=== PATIENT | male | born 1945 | race Caucasian/White ===

== ENCOUNTER 2017-10-31 23:03 | Observation (INO) ==
[2017-11-01] MEDS ORDERED: Naloxone 0.4 MG/ML INJ IVP PRN (02:34)
[2017-11-01] MEDS ORDERED: Acetaminophen 325 MG TABLET PO PRN (02:34)
[2017-11-01] MEDS ORDERED: Nitroglycerin 0.4 MG TAB.SUBL SL PRN (02:38)
[2017-11-01] MEDS ORDERED: D5% in Water 1,000 ML IVC PRN (02:39)
[2017-11-01] MEDS ORDERED: *HR* Dextrose 50 % in Water (Syg) 50 ML SYRINGE IVP PRN (02:39)
[2017-11-01] MEDS ORDERED: Dextrose Gel 15 GM/37.5 ML TUBE PO PRN ×2 (02:39)
--- NOTE | 2017-11-01 02:50 | Internal Med History&Physical ---
Date of Encounter: 11/01/17 Time of Encounter: 02:00 Internal Medicine - H&P: HPI Chief complaint: Chest pain Admitted From: Home Plans for Post Hospital Care: Home History of present illness: Mr. Guerrero is a 72 year old male transferred from [facility] for chest pain. Past medical history is significant for diabetes, hypertension, polymyalgia rheumatica on low-dose prednisone, CHETAN on night BiPAP. Patient started to have chest pain since 2 days ago. The pain is intermittent, located on substernal area, no radiation, pressure-like pain, lasted about 10 minutes. Patient has 2 episode on Wednesday and about to 5 episodes on Wednesday. Patient denies nausea or diaphoresis during pain. Patient has mild shortness of breath. Patient denies fever or cough. In [facility], first of troponin negative, chest x-ray unremarkable. Patient was given nitroglycerin paste, which can relieve chest pain per patient. Patient was suspected CAD and transferred to our hospital to rule out ACS. Past Med Surg Social Fam HX - Past Medical History Medical history: arthritis, diabetes, hyperlipidemia, hypertension Psychiatric history: no psych history - Past Surgical History Surgical History: cataract, knee replacement Additional surgical history: septoplasty, somnoplasty, vitrectomy left eye, UVPP , TUIO, Right shoulder replacement, L4/5 spinal fusion, L3/4 spinal fusion - Social History Smoking Status: Never smoker Smokeless Tobacco Status: No Alcohol use: none Drug use: none - Family History Father History Unknown: Yes Mother History Unknown: Yes Internal Medicine - H&P: Meds Folic Acid 10/05/16 [History] Omeprazole 10/05/16 [History] Ascorbate Calcium [Vitamin C] 500 mg PO DAILY 11/01/17 [History] Cymbalta 65 mg PO HS 11/01/17 [History] Dorzolamide/Timolol/Pf [Cosopt Pf Eye Drops] 1 each OP DAILY 11/01/17 [History] Doxazosin [Cardura] 8 mg PO QAM 11/01/17 [History] Fenofibrate 200 mg PO QAM 11/01/17 [History] Folic Acid 1 mg PO DAILY 11/01/17 [History] Gabapentin [Neurontin] 200 mg PO TID 11/01/17 [History] Gluc/Dereje-MSM#1/C/Narinder/Eduardo/Bor [Osteo Bi-Flex Caplet] 1 each PO QAM AND QHS 01/11 [History] HumaLOG 11/01/17 [History] Ibuprofen [Motrin Ib] 200 mg PO PRN PRN 11/01/17 [History] Iron 65 mg PO DAILY 11/01/17 [History] Levothyroxine 200 mg PO QAM 11/01/17 [History] Loratadine [Allergy Relief] 10 mg PO HS 11/01/17 [History] Losartan 100 mg PO QAM 11/01/17 [History] Magnesium Oxide 500 mg PO QAM AND QHS 11/01/17 [History] Metoprolol 11/01/17 [History] Metoprolol Succinate 25 mg PO HS 11/01/17 [History] Mirabegron [Myrbetriq] 25 mg PO HS 11/01/17 [History] Montelukast 10 mg PO QAM 11/01/17 [History] Niacin (24 HR) 500 mg PO HS 11/01/17 [History] Sodium Chloride [Sodium Chloride Tab] 1 gm PO DAILY 11/01/17 [History] Testosterone Cypionate 100 mg IM 2XW 11/01/17 [History] Triamcinolone Acet [place] 11/01/17 [History] Triamcinolone Acet [place] [Kenalog [place]] 16.5 gm NS PRN PRN 11/01/17 [History] Vitamin D3 500 mg PO HS 11/01/17 [History] miSOPROStol [Cytotec] 200 mg PO QAM AND QHS 11/01/17 [History] predniSONE [PredniSONE] 5 mg PO DAILY 11/01/17 [History] 3 Allergy/AdvReac Type Severity Reaction Status Date / Time Penicillins Allergy Hives Verified 10/05/16 12:18 All Systems PM: A 10-system review of systems was performed and is negative for pertinent findings except as documented above in the HPI. - Constitutional Vitals: Temp Pulse Resp BP Pulse Ox 97.9 F 73 18 153/72 96 11/01/17 01:05 11/01/17 01:05 11/01/17 01:05 11/01/17 01:05 11/01/17 01:05 General appearance: Present: A&O X 3, no acute distress, answers questions appropriately - Head Head exam: Present: atraumatic, normocephalic - Eye Eye exam: Present: PERRL, conjuntiva pink, sclera anicteric Pupils: Present: PERRL - Neck Neck exam general surgery: Present: supple, trachea midline. Absent: lymphadenopathy - Respiratory Respiratory exam: Present: CTAB. Absent: accessory muscle use, rales, rhonchi, wheezes - Cardiovascular Cardiovascular exam: Present: RRR, +S1, +S2. Absent: diastolic murmur, gallop, rubs, systolic murmur - GI/Abdominal GI/Abdominal exam: Present: normal bowel sounds, soft, no peritoneal signs. Absent: distended, tenderness - Extremities Exam Extremities exam: Present: warm, radial pulses palpable and symmetrical. Absent : calf tenderness, cyanotic, pedal edema - Neurological Exam Neurological exam: Present: CN II-XII intact, oriented X3, no focal deficits. Absent: pronater drift, facial droop, speech deficit - Skin Skin exam: Present: dry, intact - Assessment and plan (1) Chest pain Current Visit: Yes Status: Acute Assessment and plan: Etiology is undetermined. Atypical pain. Intermittent. Seems respond to nitroglycerin. Need to rule out ACS. - Place patient on continuous cardiac monitoring - Track 3 sets of troponin - If troponin negative and the patient is pain-free, may consider stress test, either inpatient or outpatient. Qualifiers: Chest pain type: precordial pain Qualified Code(s): R07.2 - Precordial pain (2) Diabetes mellitus Current Visit: Yes Status: Acute Assessment and plan: Continue sliding scale insulin coverage Qualifiers: Diabetes mellitus type: type 2 Diabetes mellitus long-term insulin use: with middle or intermediate school principal use Diabetes mellitus complication status: with kidney complications Diabetes mellitus complication detail: with chronic kidney disease Chronic kidney disease stage: stage 3 (moderate) Qualified Code(s): E11.22 - Type 2 diabetes mellitus with diabetic chronic kidney disease; N18.3 - Chronic kidney disease, stage 3 (moderate); Z79.4 - retirement (current) use of insulin (3) Hypertension Current Visit: Yes Status: Acute Assessment and plan: Continue home medication after verification. Hydralazine IV when necessary at this point Qualifiers: Hypertension type: essential hypertension Qualified Code(s): I10 - Essential (primary) hypertension (4) Polymyalgia rheumatica Current Visit: Yes Status: Acute Assessment and plan: Continue low-dose prednisone 5 mg daily (5) Chronic steroid use Current Visit: Yes Status: Acute Assessment and plan: Need to consider stress steroid dose if patient developed major disease. Right now continue home dose. (6) CHETAN (obstructive sleep apnea) Current Visit: Yes Status: Acute Assessment and plan: Continue BiPAP during night (7) DVT prophylaxis Current Visit: Yes Status: Acute Assessment and plan: Heparin subcutaneously - Time Spent With Patient Total time spent is greater than 50% in coordination of care (as documented) at patient's floor/unit and/or counseling patient: 40 minutes Greater than 35 minutes
[2017-11-01 03:33] LABS: Basophils % 0.2 %; Eosinophils % 0.4 %; Hematocrit 35.1 % (37.5-50.1); Hemoglobin 11.8 g/dL (12.9-16.9); Immature Granulocytes % 1.3 % (0-4); Lymphocytes # 0.9 K/mcL (0.6-4.6); Lymphocytes % 16.7 %; Mean Corpuscular HGB Conc 33.6 g/dL (31.6-35.5); Mean Corpuscular Hemoglobin 31.7 pg (28.0-33.3); Mean Corpuscular Volume 94.4 fL (83.0-100.0); Mean Platelet Volume 9.2 fL (9.4-12.4); Monocytes # 0.5 K/mcL (0.0-1.3); Monocytes % 8.8 %; Neutrophils # 3.9 K/mcL (1.6-8.9); Platelet Count 159 K/mcL (140-400); Red Blood Count 3.72 M/mcL (4.19-5.50); Red Cell Distribution Width 13.6 % (11.5-14.5); Segmented Neutrophils % 72.6 %
[2017-11-01 03:50] LABS: BUN/Creatinine Ratio 27 (6-26); Blood Urea Nitrogen 37 mg/dL (8-23); Calcium 9.4 mg/dL (8.6-10.3); Carbon Dioxide 25 mEq/L (23-29); Chloride 103 mEq/L (98-107); Glucose 208 mg/dL (70-105); Magnesium 1.5 mg/dL (1.6-2.6); Osmolality,Calculated 293 (280-300); Potassium 4.2 mEq/L (3.5-5.1); Sodium 134 mEq/L (136-145); eGFR For African Americans > 60 (> 60); eGFR For Non-African Americans 51 (> 60)
[2017-11-01] MEDS ORDERED: *HR* OxyCODONE Immed Rel 5 MG TABLET PO PRN ×2 (05:22→08:24)
[2017-11-01] MEDS: Gabapentin 100 MG CAPSULE PO SCH ×4 (06:01→20:32)
[2017-11-01] MEDS: *HR* Heparin 5,000 UNIT/ML VIAL SQ SCH ×2 (06:02→16:10)
[2017-11-01] MEDS: Insulin LISPRO 300 UNITS/3 ML VIAL SQ SCH ×4 (08:19→20:37)
[2017-11-01] MEDS: Fenofibrate 54 MG TABLET PO SCH (08:20)
[2017-11-01] MEDS: Folic Acid 1 MG TABLET PO SCH (08:20)
[2017-11-01] MEDS: Ascorbic Acid 500 MG TABLET PO SCH (08:21)
[2017-11-01] MEDS: predniSONE 5 MG TABLET PO SCH (08:21)
[2017-11-01] MEDS: Dorzolamide/Timolol OPTH 10 ML BOTTLE BOTH EYES SCH (08:23)
[2017-11-01] MEDS ORDERED: Preparation H Ointment 30 GM TUBE RC PRN (17:30)
--- NOTE | 2017-11-01 18:49 | Event Note ---
Date of Encounter: 11/01/17 Time of Encounter: 18:47 Pt seen after MN. No acute changes. Stress test ordered today and pt was NPO for lunch but was fed. NPO after MN and stress test in am. Possible D/C 11/02/2017 once stress test is negative.
--- NOTE | 2017-11-01 19:09 | Electrocardiograph Report ---
[address] [place] [address] Test Date: 2017-11-01 Pat Name: Tor Guerrero Department: 112 Room: 2A Gender: M Slurry Mixer: : 1945 Requested By: Marisol Mijares Order Number: [id number] Reading MD: Sukhdeep Bowser Measurements Intervals [place] Rate: 68 P: 51 VT: 190 QRS: -12 QRSD: 98 T: 17 QT: 375 QTc: 392 Interpretive Statements SINUS RHYTHM MODERATE VOLTAGE CRITERIA FOR LVH Electronically Signed On 11-01-2017 19:07:35 EDT by Sukhdeep Bowser
[2017-11-01] MEDS: Cholecalciferol (D-3) 1,000 UNIT TABLET PO SCH (20:32)
[2017-11-01] MEDS ORDERED: *HR* OxyCODONE Immed Rel 5 MG TABLET PO SCH (21:00)
[2017-11-01] MEDS ORDERED: Metoprolol XL (24 HR) Succ 25 MG TAB.ER.24H PO SCH (21:00)
[2017-11-02] MEDS: *HR* Heparin 5,000 UNIT/ML VIAL SQ SCH ×2 (05:42→19:00)
[2017-11-02] MEDS ORDERED: *HR* OxyCODONE Immed Rel 5 MG TABLET PO PRN (06:19)
[2017-11-02] MEDS ORDERED: Regadenoson 0.4 MG/5 ML SYRINGE IVP ONE (06:31)
[2017-11-02] MEDS: Insulin LISPRO 300 UNITS/3 ML VIAL SQ SCH ×4 (08:34→20:00)
[2017-11-02] MEDS: Fenofibrate 54 MG TABLET PO SCH (09:40)
[2017-11-02] MEDS: Gabapentin 100 MG CAPSULE PO SCH ×3 (09:40→22:56)
[2017-11-02] MEDS: Folic Acid 1 MG TABLET PO SCH (09:40)
[2017-11-02] MEDS: Dorzolamide/Timolol OPTH 10 ML BOTTLE BOTH EYES SCH (09:41)
[2017-11-02] MEDS: predniSONE 5 MG TABLET PO SCH (09:41)
[2017-11-02] MEDS: Ascorbic Acid 500 MG TABLET PO SCH (09:41)
[2017-11-02] MEDS: *HR* OxyCODONE Immed Rel 5 MG TABLET PO PRN ×2 (13:07→23:02)
--- NOTE | 2017-11-02 13:27 | Internal Med Progress Note ---
Date of Encounter: 11/02/17 Time of Encounter: 13:27 - Assessment and plan (1) Chest pain Current Visit: Yes Status: Acute Assessment and plan: Patient underwent cardiac stress test earlier today. Does have abnormal findings with reversible ischemia in the apex. Consulted cardiology. Plan for left heart catheterization either today or tomorrow. High risk for complications. Qualifiers: Chest pain type: precordial pain Qualified Code(s): R07.2 - Precordial pain (2) Diabetes mellitus Current Visit: Yes Status: Chronic Assessment and plan: Well controlled at this time. Continue to monitor blood sugars. Continue current insulin regimen Qualifiers: Diabetes mellitus type: type 2 Diabetes mellitus fpc insulin use: with assistant terminal manager use Diabetes mellitus complication status: with kidney complications Diabetes mellitus complication detail: with chronic kidney disease Chronic kidney disease stage: stage 3 (moderate) Qualified Code(s): E11.22 - Type 2 diabetes mellitus with diabetic chronic kidney disease; N18.3 - Chronic kidney disease, stage 3 (moderate); Z79.4 - jail (current) use of insulin (3) Hypertension Current Visit: Yes Status: Chronic Assessment and plan: Blood pressure is intermittently elevated. Will increase metoprolol dosage Qualifiers: Hypertension type: essential hypertension Qualified Code(s): I10 - Essential (primary) hypertension (4) Polymyalgia rheumatica Current Visit: Yes Status: Chronic Assessment and plan: Continue home medications. On prednisone 5 mg by mouth daily. We will continue (5) Chronic steroid use Current Visit: Yes Status: Acute (6) CHETAN (obstructive sleep apnea) Current Visit: Yes Status: Chronic Assessment and plan: Use CPAP as needed (7) DVT prophylaxis Current Visit: Yes Status: Acute Assessment and plan: On subcutaneous heparin - Time Spent With Patient Total time spent is greater than 50% in coordination of care (as documented) at patient's floor/unit and/or counseling patient: - Subjective Interval history: Patient underwent cardiac stress test earlier this morning. Reported chest discomfort during the procedure. No chest pain currently. No fever or chills overnight. No nausea or vomiting. - Constitutional Vitals: Temp Pulse Resp BP Pulse Ox 98.0 F 60 16 154/81 94 11/02/17 10:47 11/02/17 10:47 11/02/17 10:47 11/02/17 10:47 11/02/17 10:47 General appearance: Present: A&O X 3, no acute distress, answers questions appropriately - Respiratory Respiratory exam: Present: CTAB. Absent: accessory muscle use, rales, rhonchi, wheezes - Cardiovascular Cardiovascular exam: Present: RRR, +S1, +S2. Absent: diastolic murmur, gallop, rubs, systolic murmur - GI/Abdominal GI/Abdominal exam: Present: normal bowel sounds, soft, no peritoneal signs. Absent: distended, tenderness - Extremities Exam Extremities exam: Present: warm, radial pulses palpable and symmetrical. Absent : calf tenderness, cyanotic, pedal edema - Neurological Exam Neurological exam: Present: alert, oriented X3, no focal deficits. Absent: facial droop, speech deficit Internal Medicine: Result - Labs CBC & Chem 7: 11/01/17 03:20 11/01/17 03:20 - Impressions Impressions Echocardiogram 11/01/17 04:57 Impressions: LVEF 65%. Normal LV chamber size, wall thickness and function. Mild left ventricular diastolic dysfunction. Normal right ventricular structure and function. No evidence of pulmonary hypertension. No significant valvular dysfunction. Left Ventricular Wall Motion: Rest Echo Findings All wall segments showed normal motion. Findings: Study Quality * Technically adequate exam. ECG Findings * Normal sinus rhythm. Left Ventricle * LVEF 65%. * Normal LV chamber size, wall thickness and function. * Mild left ventricular diastolic dysfunction. Right Ventricle * Normal right ventricular structure and function. Left Atrium * Normal left atrial size. Right Atrium * Normal right atrial size. Aortic Valve * Trileaflet aortic valve. * Mildly sclerotic aortic valve leaflets. * No aortic regurgitation. * No aortic stenosis. Mitral Valve * Normal mitral valve structure and function. * No mitral regurgitation. * No mitral stenosis. Tricuspid Valve * Normal tricuspid valve structure and function. * Trace tricuspid regurgitation. * No evidence of pulmonary hypertension. Pulmonic Valve * Normal pulmonic valve structure and function. * No pulmonic regurgitation. Aorta * Normally sized aortic root. Pericardium * The pericardium appears normal. IVC * Normal IVC dimensions and inspiratory collapse. Pulmonary Artery * Normal visualized portions of the main pulmonary artery. Consult Discharge Plan - Plan Referrals: Pankaj Perez MD [Primary Care Provider] -
--- NOTE | 2017-11-02 13:59 | Cardiology Consult Note ---
Date of Encounter: 11/02/17 Time of Encounter: 13:57 Assessment and Plan (1) Chest pain Current Visit: Yes Status: Acute Multiple cardiac risk factors and abnormal stress test with preserved ejection fraction as described above. Risks benefits and alternatives were discussed patient agrees to proceed with a left heart catheterization Qualifiers: Chest pain type: unspecified Qualified Code(s): R07.9 - Chest pain, unspecified Discussion w patient/family: The assessment and plan as outlined above was discussed with the patient and/or family members who expressed understanding and agreement. All questions were answered. Thank you for involving us in the care of your patient. Please call with any questions. History of Present Illness Consult date: 11/02/17 Consult reason: chest pain Chief complaint: chest pain History of present illness: Mr. Guerrero is a 72 year old male with multiple cardiac risk factors including diabetes presents for reason of chest pain. Patient was seen and evaluated by primary team found to have moderate reversible ischemia in the apical territories. Patient does have preserved ejection fraction however. He is currently respiratory denies any chest pain, shots breath, descensus, orthopnea , PND, presyncope or syncope Risks benefits and alternatives were discussed patient regards to her left heart catheterization patient agrees to proceed Past Med Surg Social Fam HX - Past Medical History Medical history: arthritis, diabetes, hyperlipidemia, hypertension Psychiatric history: no psych history - Past Surgical History Surgical History: cataract, knee replacement Additional surgical history: septoplasty, somnoplasty, vitrectomy left eye, UVPP , TUIO, Right shoulder replacement, L4/5 spinal fusion, L3/4 spinal fusion - Social History Smoking Status: Never smoker Smokeless Tobacco Status: No Alcohol use: none Drug use: none - Family History Father History Unknown: Yes Mother History Unknown: Yes Medications and Allergies Omeprazole [PriLOSEC] 40 mg PO DAILY 10/05/16 [History] Ascorbate Calcium [Vitamin C] 500 mg PO DAILY 11/01/17 [History] Cholecalciferol (Vitamin D3) [Vitamin D] 1,000 unit PO QPM 11/01/17 [History] Dorzolamide/Timolol/Pf [Cosopt Pf Eye Drops] 1 drop OP DAILY 11/01/17 [History] Doxazosin [Cardura] 8 mg PO QAM 11/01/17 [History] Duloxetine HCl [Cymbalta] 60 mg PO QPM 11/01/17 [History] Fenofibrate 200 mg PO QAM 11/01/17 [History] Ferrous Sulfate [Iron] 325 mg PO DAILY 11/01/17 [History] Folic Acid 1 mg PO DAILY 11/01/17 [History] Gabapentin [Neurontin] 200 mg PO TID 11/01/17 [History] Gluc/Dereje-MSM#1/C/Narinder/Eduardo/Bor [Osteo Bi-Flex Caplet] 1 each PO BID 11/01/17 [ History] Hydrocodone/Acetaminophen [Hydrocodon-Acetaminophn 10-325] 1 each PO QID PRN 01/11 [History] Ibuprofen [Motrin Ib] 200 mg PO PRN PRN 11/01/17 [History] Insulin LISPRO [HumaLOG] 3 - 16 units SQ TIDWM 11/01/17 [History] Ketotifen Fumarate [Zaditor] 51 drop BOTH EYES BID 11/01/17 [History] Levothyroxine Sodium [Levoxyl] 200 mcg PO QAM 11/01/17 [History] Lidocaine Patch [Lidoderm 5% patch] 1 patch TP DAILY 11/01/17 [History] Loratadine [Allergy Relief] 10 mg PO HS 11/01/17 [History] Losartan [Cozaar] 100 mg PO QAM 11/01/17 [History] Magnesium Oxide 500 mg PO BID 11/01/17 [History] Metoprolol Succinate 25 mg PO HS 11/01/17 [History] Metoprolol Succinate [Toprol Xl] 25 mg PO QPM 11/01/17 [History] Mirabegron [Myrbetriq] 25 mg PO QAM 11/01/17 [History] Montelukast [Singulair] 10 mg PO DAILY 11/01/17 [History] Niacin (24 HR) [Niaspan] 500 mg PO HS 11/01/17 [History] [place]-3S/Dha/Epa/Fish Oil [Fish Oil [place]-3 Softgel] 1,200 mg PO BID 11/01/17 [ History] Sodium Chloride [Sodium Chloride Tab] 1 gm PO DAILY 11/01/17 [History] Testosterone Cypionate 100 mg IM 2XW 11/01/17 [History] Triamcinolone Acet Wall [Kenalog Wall] 1 spray NS DAILY 11/01/17 [History] Zinc Acetate [Galzin] 25 mg PO QPM 11/01/17 [History] miSOPROStol [Cytotec] 200 mcg PO BID 11/01/17 [History] predniSONE [PredniSONE] 5 mg PO QAM 11/01/17 [History] 3 Allergy/AdvReac Type Severity Reaction Status Date / Time Penicillins Allergy Hives Verified 11/01/17 16:00 All Systems Review: The remainder of the systems were reviewed and are negative Physical Examination Vital Signs, Last 4 Hours Temp Pulse Resp BP Pulse Ox 11/02/17 10:47 98.0 F 60 16 154/81 94 General: Conversant, No Apparent Distress HEENT: Atraumatic, Normocephaly, Mucus Membranes Moist Neck: No JVD, Normal carotid pulses Cardiac: Reg Rate and Rhythm, Normal S1 and S2, No Murmur Lungs: Normal Breath Sounds, No Wheeze, Rales, Rhonchi Neuro: Alert and responsive, No focal deficits noted Abdomen: Soft, Non-Tender Skin: No rashes noted on visualized skin Musculoskeletal: No Chest Wall Tenderness Extremities: No Clubbing, No Cyanosis, No Edema, Normal Pulses Results 11/01/17 03:20 11/01/17 03:20 Consult Discharge Plan - Plan Referrals: Pankaj Perez MD [Primary Care Provider] -
[2017-11-02] MEDS: 0.9 % Sodium Chloride 1,000 ML IVC SCH (14:50)
[2017-11-02] MEDS ORDERED: Heparin 1,000 UNITS/500 mL 500 ML ONE (16:05)
[2017-11-02] MEDS ORDERED: Nitroglycerin 1,000 MCG/10 ML VIAL IV ONE (16:05)
[2017-11-02] MEDS ORDERED: *HR* Heparin 10,000 UNIT/10 ML VIAL ONE (16:05)
[2017-11-02] MEDS ORDERED: 0.9 % Sodium Chloride 1,000 ML ONE (16:05)
[2017-11-02] MEDS ORDERED: ISOVUE-370 200 ML INFUS..BTL IV ONE (16:05)
--- NOTE | 2017-11-02 18:04 | Pre-Sedation Evaluation ---
Pre-sedation evaluation - Pre-sedation checklist Date of procedure: 11/02/17 Procedure: Heart cath Recent Vitals: Last Vital Signs Temp 98.0 F 11/02/17 10:47 Pulse 60 11/02/17 10:47 Resp 16 11/02/17 10:47 BP 154/81 11/02/17 10:47 Pulse Ox 94 11/02/17 10:47 H&P (including ROS) documented in medical record: Yes Previous reaction to sedatives/anesthetics: Yes; explain in comment Dietary Status: Clear fluids after Midnight Airway Assessment: Patient can open mouth completely, TMJ function normal, Micrognathia (under-bite, receding chin) absent, Neck with adequate range of motion Dentition: No loose teeth or bridges Possible difficult airway: No ASA Classification *see protocol: CLASS II-Mild systemic disease Plan of Care: Pt appropriate candidate for procedure/moderate/conscious sedation , Risks/benefits of procedure/sedation discussed w/ patient/family Cardiac Registry (Cardio Only) - Functional Capacity Functional Capacity: >=4 METS with symptoms - Clincal Frailty Scale Clinical Frailty Scale: Managing Well
[2017-11-02] MEDS ORDERED: *HR* Midazolam HCl 2 MG/2 ML VIAL ONE ×2 (18:41→19:11)
[2017-11-02] MEDS ORDERED: *HR* FentaNYL (PF) 100 MCG/2 ML VIAL ONE (18:41)
[2017-11-02] MEDS ORDERED: *HR* Ticagrelor 90 MG TABLET ONE (19:24)
[2017-11-02] MEDS ORDERED: Nitroglycerin 25 MG/250 ML INFUS..BTL IVC ONE (19:28)
[2017-11-02] MEDS ORDERED: *HR* Bivalirudin 250 MG VIAL IVC ONE (19:42)
[2017-11-02] MEDS ORDERED: 0.9 % Sodium Chloride 1,000 ML IVC SCH (19:45)
--- NOTE | 2017-11-02 19:53 | Invasive Diagnostic Lab Proc ---
Name: Tor Guerrero Date of Study: 11/02/2017 Date: 1945 Ht: 68.1in Medical Record#: [id number] Age: 72 Wt: 194.01lb Gender: Male BSA: 2.02 Order #: [id number] BMI: 29.4 Physicians Procedure Physician: Liza Ross MD, [facility] Referring MD: Referring MD: Staff Name Position [facility] 06:32 PM LouisaLittle RT (R) Scrub 06:32 PM Eusebia Ramirez RN Forklift Picker 06:33 PM Indications Indication Abnormal Test - Stress Procedures Performed Procedure L HRT ARTERY/VENTRICLE ANGIO PRQ CARD SIOBHAN STENT W/ANGIO 1 VSL PRQ CARD SIOBHAN STENT W/ANGIO 1 VSL Pre-Procedure Checklist Informed consent is complete signed and on chart. H&P is on chart. ID band is on and ID verified with patient. Patient NPO for procedure The procedure was described for the patient and questions were answered. ECG is on chart. Plan of Care Patient will tolerate the procedure without complications. Adequate level of comfort will be maintained. Hemodynamics will remain stable Patient will recover from procedure without complications. Respiratory function will be maintained. Cardiac rhythm will remain stable. Patient temperature will be maintained. Patient and/or family have verbalized understanding of the procedure. Patient Education Chief Complaint/Reason for Test: Cardiac Cath Developmental Category: Geriatric (65+ years) Developmentally Appropriate for Age: Yes Learning Barriers: None Education Needs: Procedure Education Method: Verbal Information Taught: Cardiac Cath Educational Evaluation: Able to repeat information Intravenous Access Time IV Size Location DC'd Fluid/Drip Rate Units RN 20g 1 04/29" Patent On Arrival Rt Wrist 0.9NaCl ml/hr Allergies Penicillins PCN Vital Signs Time BP (mmHg) HR (bpm) O2 Sat. RR (bpm) LOC 06:33 PM / % 5 = Fully awake and oriented or at pre-proc level 06:36 PM / % 5 = Fully awake and oriented or at pre-proc level 06:49 PM / % 4 = Oriented but drowsy 06:49 PM / % 4 = Oriented but drowsy 07:04 PM / % 4 = Oriented but drowsy 06:35 PM 175 / 100 69 98 % 20 06:39 PM 183 / 94 55 97 % 18 06:44 PM 181 / 95 64 100 % 22 06:49 PM 162 / 90 68 100 % 29 06:54 PM 178 / 96 72 100 % 9 06:59 PM 169 / 102 76 96 % 10 07:04 PM 174 / 96 77 98 % 12 07:09 PM 189 / 108 78 100 % 17 07:14 PM 199 / 110 78 100 % 13 07:19 PM 162 / 104 75 100 % 13 07:24 PM 176 / 107 74 100 % 15 07:29 PM 169 / 105 81 100 % 11 Procedural Medications Time Medication Dose Units Method Given By 06:33 PM Oxygen 2 L/min nasal cannula Eusebia Ramirez RN 06:48 PM Lidocaine 2% 17 ml Subcutaneous Liza Ross MD, FACC 06:49 PM Versed 2 mg Intravenous Eusebia Ramirez RN 06:49 PM Fentanyl 50 mcg Intravenous Eusebia Ramirez RN 06:51 PM Benadryl 25 mg Intravenous Eusebia Ramirez RN 07:00 PM Angiomax 0.75mg/kg bolus: 13.5 ml Intravenous Eusebia Ramirez RN 07:03 PM Angiomax 1.75mg/kg/hr: 31.5 ml/hr Intravenous Eusebia Ramirez RN 07:11 PM Versed 1 mg Intravenous Eusebia Ramirez RN 07:11 PM Fentanyl 25 mcg Intravenous Eusebia Ramirez RN 07:14 PM Nitroglycerin 200 mcg Intracoronary Eusebia Ramirez RN 07:27 PM Nitroglycerin 200 mcg Intracoronary Liza Ross MD, FACC 07:30 PM Brilinta 180 mg Orally Eusebia Ramirez RN 07:32 PM Nitroglycerin 5 mcg/min Intravenous Eusebia Ramirez RN 07:34 PM Fentanyl 25 mcg Intravenous Eusebia Ramirez RN ASA Classification: CLASS II- Mild systemic disease (i.e. well-controlled diabetes, hypertension, asthma, cigarette smoking) Babak Score Preprocedure Postprocedure Activity 2- Moves 4 extremities sustained head lift Activity 2- Moves 4 extremities sustained head lift Circulation 2- SBP +/= 20 points of pre-anesthetic level Circulation 2- SBP +/= 20 points of pre-anesthetic level Consciousness 2- Awake and alert oriented x 3 Consciousness 2- Awake and alert oriented x 3 O2 Saturation 2- Able to maintain O2 satruation of 92% on room air O2 Saturation 2- Able to maintain O2 satruation of 92% on room air Respiratory 2- Able to deep breathe and cough well Respiratory 2- Able to deep breathe and cough well Total Score 10 Total Score 10 Contrast Agent: Isovue Diagnostic Contrast: 150 ml Total Contrast: 150 ml Fluoro Dose: 39501 mGy Procedure Log Time Note Enter By 06:24 PM CathStat 06:32 PM 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 06:33 PM Procedure start 18:33 :33 PM Time: 18:33 Oxygen on at 2 L/min per nasal cannula by Eusebia Ramirez RN [facility] :33 PM Time: 18:33 Patient comfortable and pain free: Yes :33 PM Time: 18:33LOC: 5 = Fully awake and oriented or at pre-proc level [facility] :33 PM Case Start 06:33 PM Vitals capture started with the following parameters, Patient=Adult, Interval=5 min, Initial Enquhgtn=612 mmHg, Deflation Rate=5 mmHg, Cuff placed on Right Arm 06:34 PM Recorded ECG: HR=58 Condition=Condition 1 06:34 PM Hair removed from procedure site in procedure lab using clippers. Bilateral groin prepped with Chloraprep by Eusebia Ramirez RN, then patient was draped. Skin intact. 06:35 PM HR=69 bpm, JVAJ=301/100 mmhg, SpO2=98.0 %, Resp=20 B/min 06:36 PM Time: 18:36 Patient comfortable and pain free: Yes [facility] 06:36 PM Time: 18:36LOC: 5 = Fully awake and oriented or at pre-proc level mm 06:39 PM HR=55 bpm, HZQH=813/94 mmhg, SpO2=97.0 %, Resp=18 B/min 06:44 PM HR=64 bpm, YQGJ=375/95 mmhg, DvY2=968.0 %, Resp=22 B/min 06:48 PM Time out performed according to hospital policy 06:48 PM Time: 18:48 17 ml Lidocaine 2% to right groin Subcutaneous Given by Liza Ross MD, [facility] 06:49 PM Access obtained by percutaneous puncture. 5Fr 10cm Terumo [place] sheath placed in right Femoral artery. [id number] [facility] 06:49 PM 0.035 145cm Navilyst 3mmJ wire [id number] [facility] 06:49 PM 5Fr FL 4 catheter inserted over the wire [facility] 06:49 PM Time: 18:49 Patient comfortable and pain free: Yes [facility] 06:49 PM Time: 18:49LOC: 4 = Oriented but drowsy [facility] 06:49 PM Time: 18:49 Versed 2 mg Intravenous Given by Eusebia Ramirez RN joaquinveronika 06:49 PM Time: 18:49 Fentanyl 50 mcg Intravenous Given by Eusebia Ramirez RN [facility] 06:49 PM HR=68 bpm, HMLV=935/90 mmhg, JxA2=727.0 %, Resp=29 B/min 06:49 PM wire removed [facility] 06:50 PM ASA Class CLASS II- Mild systemic disease (i.e. well-controlled diabetes, hypertension, asthma, cigarette smoking) [facility] 06:50 PM LCA angiography performed in multiple views. [facility] 06:50 PM Recorded Pressure: Ao, HR=69, Condition=Condition 1 (Aorta) Ao 121/65/91 06:51 PM Time: 18:51 Benadryl 25 mg Intravenous Given by [facility]eb[facility] 06:52 PM 0.035 260cm Navilyst 3mmJ wire [id number] [facility] 06:52 PM Catheter removed [facility] 06:52 PM 5Fr FR 4 catheter inserted over the wire [facility] 06:53 PM wire removed [facility] 06:53 PM Recorded Pressure: Ao, HR=74, Condition=Condition 1 (Aorta) Ao 148/94/120 06:54 PM RCA angiography performed in multiple views. [facility] 06:54 PM Catheter removed [facility] 06:54 PM 5Fr Pigtail catheter inserted over the wire [facility] 06:54 PM Catheter selectively placed in left ventricle [facility] 06:54 PM Bolus angiogram of left Ventricle complete: 8 ml/sec for a total of 24 mls [facility] 06:54 PM HR=72 bpm, KWGI=657/96 mmhg, MlH1=826.0 %, Resp=9 B/min 06:55 PM Pressure channel 1 zeroed. 06:55 PM Recorded Pressure: LV, HR=76, Condition=Condition 1 (Left Ventricle) LV 145/15/18 06:56 PM Catheter removed [facility] 06:56 PM Recorded Pressure: LV, Ao, HR=76, Condition=Condition 1 (Left Ventricle) LV 136/32/50, (Aorta) Ao 135/79/109 06:57 PM Inflation device was opened. [facility] 06:59 PM Sheath exchanged for a 6 Fr 11 cm Cordis Karen sheath [id number] [facility] 06:59 PM HR=76 bpm, CTRI=687/102 mmhg, SpO2=96.0 %, Resp=10 B/min 07:00 PM Time: 19:00 Angiomax 0.75mg/kg bolus: 13.5 ml Intravenous Given by Eusebia Ramirez RN 07:02 PM 6Fr EBU 3.5 Medtronic guide catheter was used to cannulate the PCI vessel successfully. reused? No hardy 07:03 PM Time: 19:03 Angiomax 1.75mg/kg/hr: 31.5 ml/hr Intravenous Given by Eusebia Ramirez RN [place] pump michelle 07:04 PM HR=77 bpm, TWPR=896/96 mmhg, SpO2=98.0 %, Resp=12 B/min 07:04 PM Time: 18:49LOC: 4 = Oriented but drowsy tshardy 07:04 PM Time: 18:49 Patient comfortable and pain free: Yes hardy 07:04 PM .014 Prowater 180cm guide wire across target lesion- successful. reused? No tsoummveronika 07:06 PM Coronary Dominance: right [facility] 07[facility]07 PM Recorded Pressure: Ao, HR=75, Condition=Condition 1 (Aorta) Ao 181/88/128 07:07 PM 2.0 mm x 12 mm Emerge Monorail balloon across target lesion- successful. reused? No tsjoaquinmmveronika 07:08 PM Balloon inflated @ 8 janette for 20 seconds [facility] 07:08 PM Lesion found in Mid LAD. Pre Stenosis: 99 Pre JULIET Flow: 3: Complete and Brisk Flow/Perfusion [facility] 07:09 PM HR=78 bpm, DVNA=098/108 mmhg, FfQ7=405.0 %, Resp=17 B/min 07:10 PM Balloon catheter removed intact. [facility] 07:11 PM 2.25mm x 16mm Synergy drug-eluting stent across target lesion- successful Lot [facility][id number] [facility] 07:11 PM Time: 19:11 Versed 1 mg Intravenous Given by Eusebia Ramirez RN hardy 07:11 PM Time: 19:11 Fentanyl 25 mcg Intravenous Given by Eusebia Ramirez RN 07:12 PM Stent deployed @ 12 janette for 30 seconds [facility] 07:12 PM Mid/Distal Left Anterior Descending Coronary Artery and diagonal branches with 99% stenosis. If graft is supplying this area, 0 % stenosis [facility] 07:14 PM Time: 19:14 Nitroglycerin 200 mcg Intracoronary Given by Eusebia Ramirez RN 07:14 PM HR=78 bpm, MTWH=501/110 mmhg, IfR3=392.0 %, Resp=13 B/min 07:14 PM Stent delivery system removed intact. tsjoaquinmmveronika 07:15 PM Guide wire removed intact. tsjoaquinmmveronika 07:15 PM Guide catheter removed intact. [facility] 07:18 PM 6Fr JR 4 Runway guide catheter was used to cannulate the PCI vessel successfully. reused? No tsoummers 07:18 PM .014 Prowater 180cm guide wire across target lesion- successful. reused? No tsoummers 07:18 PM Recorded Pressure: Ao, HR=77, Condition=Condition 1 (Aorta) Ao 153/84/114 07:18 PM 2.5 mm x 15 mm Emerge Monorail balloon across target lesion- successful. reused? No [facility] 07:19 PM HR=75 bpm, KMQM=335/104 mmhg, YaJ5=646.0 %, Resp=13 B/min, Comment=nsr 07:19 PM Time: 19:04LOC: 4 = Oriented but drowsy [facility] 07:19 PM Time: 19:04 Patient comfortable and pain free: Yes 07:21 PM Balloon inflated @ 8 janette for 23 seconds 07:23 PM Balloon catheter removed intact. 07:23 PM Lesion found in Mid RCA. Pre Stenosis: 80 Pre JULIET Flow: 3: Complete and Brisk Flow/Perfusion [facility] 07:23 PM Right Coronary, Right Posterior Descending Arteries with Right Posterolateral and Acute Marginal branches with 80 % stenosis. If graft is supplying this area, 0 % stenosis [facility] 07:24 PM HR=74 bpm, VMRA=635/107 mmhg, UoM0=451.0 %, Resp=15 B/min 07:25 PM 3.5mm x 24mm Synergy drug-eluting stent across target lesion- successful Lot #[id number] 07:25 PM Stent deployed @ 12 janette for 30 seconds [facility] 07:26 PM Stent balloon reinflated @ 16 janette for 15 seconds 07:27 PM Stent delivery system removed intact. mm 07:28 PM Time: 19:27 Nitroglycerin 200 mcg Intracoronary Given by Liza Ross MD, [facility] 07:28 PM Recorded Pressure: Ao, HR=81, Condition=Condition 1 (Aorta) Ao 195/94/136 07:28 PM Guide wire removed intact. tsmm 07:29 PM Guide catheter removed intact. [facility] 07:29 PM HR=81 bpm, FNHV=689/105 mmhg, BbY0=065.0 %, Resp=11 B/min 07:30 PM Bolus angiogram of right Femoral complete: 2 ml/sec for a total of 4 mls tsmmers 07:30 PM Procedure completed at 19:30 11/02/2017 [facility] 07:30 PM Did you address JULIET flow and Dominance? Yes tsoummers 07:30 PM Time: 19:30 Brilinta 180 mg Orally crushed Given by Eusebia Ramirez RN tshardy 07:33 PM Time: 19:32 Nitroglycerin 5 mcg/min Intravenous Given by Eusebia Ramirez RN tshardy 07:34 PM Time: 19:34 Fentanyl 25 mcg Intravenous Given by Eusebia Ramirez RN 07:40 PM Sign out completed: Radiation Dose 878.68 mGy, 51656 cGy/cm2 Fluoro Time: 11.2 Isovue 370 - 200ml contrast 150.4 ml given by Liza Ross MD, [facility]. Complications: NoneCardiac Rehab Consult needed: YesConfirmed administered medications: Yes tsoummers 07:40 PM Isovue 370 - 200ml,2 Bottle(s) used. tsoummers 07:40 PM Sheath left in place to be pulled on floor/holding area tsoummveronika 07:40 PM Estimated Blood Loss: less than 20cc tsoummveronika 07:40 PM Post ECG NSR tsoummers 07:40 PM Post Blood Pressure 150/93 tsoummers 07:40 PM Information taught Cardiac Cath and PCI tsoummveronika 07:41 PM Education needs Procedure, Plan of Care, and Responsibilities of Patient in Care tsoummers 07:41 PM Learning barriers :None tsoummers 07:41 PM Education Methods Verbal tsoumm 07:41 PM Education evaluation Able to repeat information tsoummveronika 07:41 PM Site status No bleeding/hematoma - Rt Groin as reported by Sites, Little RT (R) at 19:41 tsoummers 07:41 PM Opsite applied tsoummers 07:41 PM Plavix, Effient or Brilinta given Yes tsoummers 07:41 PM Delay to floor No tsoummers 07:41 PM Family placed in consult room. tsoummers 07:41 PM Complications: None tsoummers 07:41 PM Fluoro Time: 11.2 tsoummers 07:41 PM Isovue 370 - 200ml contrast 150.[address] Ross. tsoummveronika 07:41 PM Radiation Dose 878.68 mGy tsoummveronika 07:42 PM Lesion found in Proximal RCA. Pre Stenosis: 30 Pre JULIET Flow: tsoummers 07:42 PM Lesion found in Proximal LAD. Pre Stenosis: 25 Pre JULIET Flow: tsoummers 07:42 PM Lesion found in Proximal Circumflex. Pre Stenosis: 25 Pre JULIET Flow: [facility] 07:42 PM Circumflex, Obtuse Marginal, Left Posterior Descending, and Left Posterolateral Coronary Arteries with 25 % stenosis. If graft is supplying this area, 0 % stenosis [facility] 07:42 PM Proximal Left Anterior Descending Coronary Artery with 25% stenosis. If graft is supplying this territory, 0 % stenosis. [facility] 07[facility]46 PM Report given to Ximena MARINELLI Pt taken to ICU Room #02. 19:45 michelle 07:46 PM Patient out of room: 19:46 michelle Complications Complication None Hemodynamics Pressures Site Systolic/A Wave Diastolic/V Wave Mean AO 121 65 91 AO 148 94 120 LV 145 15 18 LV 136 32 50 AO 135 79 109 AO 181 88 128 AO 153 84 114 AO 195 94 136 Post Procedure Information Blood Pressure: 150/93 mmHg Rhythm: NSR Post procedural instructions were given Site Checks Time Location Status Staff Sheath In? Note 07:41 PM Rt Groin No bleeding/hematoma Sites, Littel RT (R) Pulses Time Site Pre-Procedure Post-Procedure Note Bilateral DP & PT 2+ Bilateral radial 2+ Updated by Cyndy Weaver RN on 11/02/2017 7:46:47 PM electronically signed on 11/02/2017 7:47:10 PM with status of Final
[2017-11-02] MEDS: amLODIPine 5 MG TABLET PO SCH (20:39)
[2017-11-02] MEDS ORDERED: Metoprolol XL (24 HR) Succ 25 MG TAB.ER.24H PO SCH (21:00)
[2017-11-02] MEDS: Cholecalciferol (D-3) 1,000 UNIT TABLET PO SCH (22:56)
[2017-11-03] MEDS ORDERED: *HR* Atropine Sulfate 1 MG/10 ML SYRINGE ONE (01:45)
[2017-11-03] MEDS: 0.9 % Sodium Chloride 1,000 ML IVC SCH (01:47)
[2017-11-03] MEDS: *HR* OxyCODONE Immed Rel 5 MG TABLET PO PRN ×2 (04:51→11:56)
[2017-11-03] MEDS: *HR* Heparin 5,000 UNIT/ML VIAL SQ SCH ×2 (04:51→18:13)
[2017-11-03 05:36] LABS: Hemoglobin 11.8 g/dL (12.9-16.9)
[2017-11-03 05:58] LABS: BUN/Creatinine Ratio 21 (6-26); Blood Urea Nitrogen 26 mg/dL (8-23); eGFR For African Americans > 60 (> 60); eGFR For Non-African Americans 58 (> 60)
[2017-11-03 06:00] LABS: Troponin I 0.14 ng/mL (< 0.04)
[2017-11-03] MEDS: Insulin LISPRO 300 UNITS/3 ML VIAL SQ SCH ×3 (08:15→16:21)
[2017-11-03] MEDS: amLODIPine 5 MG TABLET PO SCH (08:57)
[2017-11-03] MEDS: Ascorbic Acid 500 MG TABLET PO SCH (08:58)
[2017-11-03] MEDS: Folic Acid 1 MG TABLET PO SCH (08:58)
[2017-11-03] MEDS: Fenofibrate 54 MG TABLET PO SCH (08:59)
[2017-11-03] MEDS: predniSONE 5 MG TABLET PO SCH (08:59)
[2017-11-03] MEDS: Gabapentin 100 MG CAPSULE PO SCH ×2 (08:59→16:20)
[2017-11-03] MEDS: Dorzolamide/Timolol OPTH 10 ML BOTTLE BOTH EYES SCH (10:31)
[2017-11-03] MEDS ORDERED: Aspirin 81 MG TAB.CHEW PO SCH (11:30)
--- NOTE | 2017-11-03 11:51 | Cardiology Progress Note ---
Date of Encounter: 11/03/17 Time of Encounter: 11:46 Assessment and Plan (1) CAD (coronary artery disease) Current Visit: Yes Status: Acute S/P LHC yesterday for abnormal stress test. Double vessel coronary artery disease. The left ventricle is normal and has normal contractility EF 60%. Patient had successful PTCA/Drug-Eluting Stent placement in the mid LAD. Patient had successful PTCA/Drug-Eluting Stent placement in the mid RCA. Post LHC troponin 0.14. DAPT (ASA and Plavix) uninterrupted x 1 year. Pt verbalizes understanding. Continue BB, ARB. Start Statin. Right femoral access site no bleeding or hematoma. Moderate ecchymosis. H&H stable. Pt reports mild groin pain. Discussed with Dr. Marion. Recommend he ambulate. If no significant pain, no further testing needed. If groin pain worsens, then recommend US to r/o pseudo. TTE EF 65%, mild LVDD, no significant valvular dysfunction. Cardiology signing off. Reconsult PRN. Will coordinate outpt follow-up in 3-4 weeks. Qualifiers: Coronary Disease-Associated Artery/Lesion type: [place] artery [place] vs. transplanted heart: [place] heart Associated angina: angina presence unspecified Qualified Code(s): I25.10 - Atherosclerotic heart disease of [place] coronary artery without angina pectoris (2) Essential hypertension Current Visit: Yes Status: Chronic Uncontrolled BP at home and yesterday. Was on nitro gtt for BP control, since weaned off. BP stable this AM. Continue current antihypertensives and adjust as necessary. Discussion w patient/family: The assessment and plan as outlined above was discussed with the patient and/or family members who expressed understanding and agreement. All questions were answered. Thank you for involving us in the care of your patient. Please call with any questions. I will discuss all the above with Dr. Marion and make changes as necessary. Subjective Principal diagnosis: CAD, abnormal stress test Interval history: S/P LHC yesterday for abnormal stress test. Double vessel coronary artery disease. The left ventricle is normal and has normal contractility EF 60%. Patient had successful PTCA/Drug-Eluting Stent placement in the mid LAD. Patient had successful PTCA/Drug-Eluting Stent placement in the mid RCA. Reports mild groin pain that seems to be improved. Denies chest pain. Reports intermittent dyspnea overnight, none currently. Weaned off nitro gtt. BP stable. Objective Vital Signs, Last 4 Hours Temp Pulse 11/03/17 08:08 97.5 F L 11/03/17 07:47 64 Vital Signs Temp Pulse Pulse Resp BP Pulse Ox 11/03/17 08:08 97.5 F L 11/03/17 07:47 64 11/03/17 07:00 97.5 F L 68 16 121/62 95 11/03/17 06:00 74 74 14 141/98 100 11/03/17 05:00 72 72 14 128/71 100 11/03/17 04:55 97.9 F 11/03/17 04:00 70 67 12 160/87 100 11/03/17 03:15 78 63 16 134/86 100 11/03/17 02:45 68 65 12 136/74 100 11/03/17 02:30 59 59 14 123/69 100 11/03/17 02:15 73 73 16 124/76 100 11/03/17 02:05 67 67 16 127/86 100 11/03/17 02:00 68 67 14 137/77 100 11/03/17 01:55 65 65 18 137/77 100 11/03/17 01:50 56 60 16 143/84 100 11/03/17 01:48 62 11/03/17 01:38 67 11/03/17 01:30 59 16 132/77 100 11/03/17 00:15 97.6 F 55 18 133/78 99 11/03/17 00:00 61 11/02/17 23:00 53 55 16 131/70 99 11/02/17 22:15 67 64 14 123/80 100 11/02/17 21:57 56 11/02/17 21:45 69 12 115/79 98 11/02/17 20:30 71 11/02/17 20:00 62 16 179/92 97 11/02/17 19:58 98.1 F 54 14 181/95 99 11/02/17 19:52 56 Intake and Output 11/02/17 11/03/17 11/03/17 23:59 07:59 15:59 Intake Total 0 / 0 1000 / 1000 Output Total 850 / 850 660 / 660 400 / 400 Balance -850 / -850 340 / 340 -400 / -400 Intake: IV Fluids 1000 / 1000 0.9 % Sodium Chloride 1,000 ML 1000 / 1000 @ 100 mls/hr IVC .Q10H [facility] Rx#: [id number] Oral 0 / 0 0 / 0 Output: Urine 850 / 850 450 / 450 400 / 400 Catheter 210 / 210 Other: Weight 86 kg 86 kg Blood Glucose* 140 Patient Weight 11/03/17 23:59 Weight 86 kg General: Conversant, No Apparent Distress HEENT: Atraumatic, Normocephaly, Mucus Membranes Moist Neck: No JVD, Normal carotid pulses Cardiac: Reg Rate and Rhythm, Normal S1 and S2, No Murmur Lungs: Normal Breath Sounds, No Wheeze, Rales, Rhonchi Neuro: Alert and responsive, No focal deficits noted Abdomen: Soft, Non-Tender Skin: Other (right femoral access site no bleeding or hematoma. Moderate ecchymosis noted.) Musculoskeletal: No Chest Wall Tenderness Extremities: No Clubbing, No Cyanosis, No Edema, Normal Pulses Results 11/03/17 05:20 11/03/17 05:20 Lab Results 11/03/17 11/03/17 05:20 05:20 Hgb 11.8 L Hct 36.0 L Plt Count 160 BUN 26 H Creatinine 1.24 Troponin I 0.14 H* Short CBC 11/03/17 Range/Units 05:20 Hgb 11.8 L (12.9-16.9) g/dL Hct 36.0 L (37.5-50.1) % Plt Count 160 (140-400) K/mcL BMP 11/03/17 Range/Units 05:20 BUN 26 H (8-23) mg/dL Creatinine 1.24 (0.70-1.30) mg/dL Cardiac Enzymes 11/03/17 Range/Units 05:20 Troponin I 0.14 H* (< 0.04) ng/mL Active Medications Acetaminophen (Tylenol) 650 mg PO Q6HR PRN PRN Reason: Mild Pain/Fever Stop: 05/03/18 02:35 Amlodipine Besylate (Norvasc) 5 mg PO DAILY [facility] PRN Reason: Protocol Stop: 05/04/18 19:46 Last Admin: 11/03/17 08:57 Dose: 5 mg Ascorbic Acid (Vitamin C) 500 mg PO DAILY [facility] Stop: 05/03/18 09:01 Last Admin: 11/03/17 08:58 Dose: 500 mg Aspirin (Aspirin) 81 mg PO DAILY [facility] Stop: 05/05/18 11:31 Clopidogrel Bisulfate (Plavix) 75 mg PO DAILY [facility] Stop: 05/05/18 09:01 Last Admin: 11/03/17 08:57 Dose: 75 mg Dextrose/Water (Dextrose 50% (Syg)) 25 ml IVP AD PRN PRN Reason: Hypoglycemia Stop: 05/03/18 02:40 Dorzolamide/Timolol (Cosopt) 1 drop BOTH EYES DAILY [facility] Stop: 05/03/18 09:01 Last Admin: 11/03/17 10:31 Dose: Not Given Doxazosin Mesylate (Cardura) 8 mg PO QAM [facility] Stop: 05/03/18 09:01 Last Admin: 11/03/17 08:59 Dose: 8 mg Fenofibrate (Tricor) 216 mg PO QAM [facility] Stop: 05/03/18 09:01 Last Admin: 11/03/17 08:59 Dose: 216 mg Folic Acid (Folic Acid) 1 mg PO DAILY [facility] Stop: 05/03/18 09:01 Last Admin: 11/03/17 08:58 Dose: 1 mg Gabapentin (Neurontin) 200 mg PO TID [facility] Stop: 05/03/18 05:31 Last Admin: 11/03/17 08:59 Dose: 200 mg Glucagon (Glucagen) 1 mg IM ONCE PRN PRN Reason: Hypoglycemia Stop: 05/03/18 02:40 Glucose (Gluctose) 15 gm PO ONCE PRN PRN Reason: Hypoglycemia Stop: 05/03/18 02:40 Glucose (Gluctose) 30 gm PO ONCE PRN PRN Reason: Hypoglycemia Stop: 05/03/18 02:40 Heparin Sodium (Porcine) (Heparin) 5,000 unit SQ Q12HCO [facility] Stop: 05/03/18 06:01 Last Admin: 11/03/17 04:51 Dose: 5,000 unit Hydralazine HCl (Hydralazine) 10 mg IVP Q6HR PRN PRN Reason: Hypertension Stop: 05/03/18 03:10 Dextrose (Dextrose 5%) 1,000 mls @ 100 mls/hr IVC .Q10H PRN PRN Reason: HYPOGLYCEMIA Stop: 05/03/18 02:40 Sodium Chloride (0.9 % Sodium Chloride) 1,000 mls @ 100 mls/hr IVC .Q10H [facility] Stop: 05/04/18 13:31 Last Admin: 11/03/17 01:47 Dose: 100 mls/hr Insulin Human Lispro (Humalog) 0 units SQ [facility] PRN Reason: Protocol Stop: 05/03/18 21:01 Last Admin: 11/02/17 20:00 Dose: Not Given Insulin Human Lispro (Humalog) 0 units SQ TIDAC [facility] PRN Reason: Protocol Stop: 05/03/18 07:31 Last Admin: 11/03/17 08:15 Dose: Not Given Levothyroxine Sodium (Synthroid) 200 mcg PO DAILY@0630 [facility] Stop: 05/03/18 06:31 Last Admin: 11/03/17 04:51 Dose: 200 mcg Losartan Potassium (Cozaar) 100 mg PO [facility] PRN Reason: Protocol Stop: 05/03/18 09:01 Last Admin: 11/03/17 08:59 Dose: 100 mg Metoprolol Succinate (Toprol Xl) 50 mg PO [facility] Stop: 05/04/18 21:01 Last Admin: 11/02/17 20:38 Dose: 50 mg Montelukast Sodium (Singulair) 10 mg PO [facility] Stop: 05/03/18 09:01 Last Admin: 11/03/17 08:57 Dose: 10 mg Naloxone HCl (Narcan) 0.4 mg IVP Q2MIN PRN PRN Reason: SEE COMMENTS Stop: 05/03/18 02:35 Nitroglycerin (Nitroglycerin) 0.4 mg SL Q5MIN PRN PRN Reason: Chest Pain Stop: 05/03/18 02:39 Omeprazole (Prilosec) 20 mg PO [facility] Stop: 05/03/18 09:01 Last Admin: 11/03/17 08:58 Dose: 20 mg Oxycodone HCl (Roxicodone) 10 mg PO Q6HR PRN PRN Reason: Severe Pain Stop: 05/04/18 06:18 Last Admin: 11/03/17 04:51 Dose: 10 mg Phenyleph/Shark Oil/Min Oil/Petrol (Preparation H Ointment) 1 appl RC ONCE PRN PRN Reason: Hemorrhoids Stop: 05/03/18 17:31 Prednisone (Prednisone) 5 mg PO DAILY [facility] Stop: 05/03/18 09:01 Last Admin: 11/03/17 08:59 Dose: 5 mg Sodium Chloride (Sodium Chloride) 1 gm PO DAILY [facility] Stop: 05/03/18 09:01 Last Admin: 11/03/17 08:58 Dose: 1 gm Vitamin D (Vitamin D) 1,000 unit PO HS [facility] Stop: 05/03/18 21:01 Last Admin: 11/02/17 22:56 Dose: Not Given - Imaging and Cardiology Stress Test: report reviewed Echo: report reviewed Cardiac cath: report reviewed - EKG Interpretation EKG results cardiology: other (12 hr tele AVG HR 64, SR) Consult Discharge Plan - Plan Additional Instructions: RISK FACTORS: STOP SMOKING: If you smoke, STOP. Smoking or tobacco use significantly increases your risk of heart disease because nicotine causes the arteries to narrow or constrict. It also causes fats to stick to the artery. Your chances of having a heart attack are greatly increased if you continue to smoke. For more information, call the education line for smoking cessation 9-511-RKMQVDW EAT A LOW FAT/CHOLESTEROL/SODIUM DIET: This diet may help reduce your chances of having a heart attack. LIFTING: Avoid lifting anything more than 10 pounds for 5-7 days Prior to straining, laughing, sneezing and/or coughing, apply manual pressure directly over insertion site. ACTIVITY: You may walk or climb stairs as tolerated You can resume sexual activity as tolerated In general, you are encouraged to engage in a minimum of 30 minutes or more of moderate intensity physical activity, such as brisk walking, daily or at least 3 -4 times weekly BATHING Do not submerge the site into water (bath tub, hot tub, swimming pool) for 1 week. This can be a source for infection into the blood stream. You may shower after 24 hours SITE CARE: After 24 hours, you may remove the dressing and leave the site open to air. Keep the site clean and dry. Clean gently and pat dry. You can expect bruising and tenderness that gradually resolve within a week or two. Return to work as instructed per your physician Resume driving as instructed per physician Keep all scheduled follow up appointments Resume medications as instructed IMPORTANT: If prescribed a Platelet Aggregation Inhibitor such as, Plavix, Brilinta or Effient: Duration of therapy is minimum one year These medications are often used in combination with Aspirin in prevention of future heart attacks Never discontinue unless consult with your Pantry Goods Maker STROKE (CVA) Risk factors for a stroke are: Age, cigarette smoking, diabetes, excessive alcohol consumption, family history, high blood pressure, overweight, physical inactivity, prior stroke, heart attack, diagnosis of carotid artery stenosis or other artery disease. Warning signs: Sudden numbness or weakness of the face, arm or leg; especially on one side of the body, sudden confusion, trouble speaking or understanding, sudden trouble seeing in one or both eyes, sudden trouble walking, dizziness, loss of balance or coordination, sudden severe headache with no cause. Call 911 or go to the Emergency Room. CONGESTIVE HEART FAILURE: If you have been diagnosed with Congestive Heart Failure (CHF) and your symptoms return, make an appointment with your physician Weigh yourself daily. Notify your physician if you have a weight gain of two or more pounds in one day or five or more pounds in one week. If you experience any difficulty breathing, please call 911 BLEEDING: Although the risk of bleeding is minimal, it can happen. If you have any bleeding from the site, apply firm pressure above the puncture site for 10-15 minutes. If the bleeding does not stop, continue manual pressure and call 911 Contact your physician if: You develop a fever greater than 101 degrees Fahrenheit Your site becomes reddened or has any drainage You have an increase in pain or burning at the site or if a large knot forms at the site. If you experience chest pain, shortness of breath, dizziness, or extreme tiredness, stop the activity and rest. Please notify your physicians office if you experience any of these symptoms and they are not relieved by rest please call 911! Referrals: Pankaj Perez MD [Primary Care Provider] -
--- NOTE | 2017-11-03 16:07 | Discharge Summary ---
- NOTES TO OUTPATIENT PROVIDER Notes to Outpatient Provider: Patient hospitalized here for chest pain. Underwent stress test which was abnormal. Underwent left heart catheterization and placement of drug eluting stents to mid LAD and mid RCA. On dual antiplatelet therapy. Stable for discharge from a cardiology standpoint. He will follow up with enterprise sales executive after discharge for further management. Orders not resulted at time of discharge: Pending orders 11/01/17 09:33 NM vasquez perf SPECT multi [NM] Routine Date of Encounter: 11/03/17 Time of Encounter: 16:00 - Discharge Diagnosis (1) Chest pain Priority: Primary Status: Acute Qualifiers: Chest pain type: chest pain due to myocardial ischemia Ischemic chest pain type: other angina pectoris type Qualified Code(s): I20.8 - Other forms of angina pectoris (2) Diabetes mellitus Priority: Secondary Status: Chronic Qualifiers: Diabetes mellitus type: type 2 Diabetes mellitus correction insulin use: with plaster lather use Diabetes mellitus complication status: with kidney complications Diabetes mellitus complication detail: with chronic kidney disease Chronic kidney disease stage: stage 3 (moderate) Qualified Code(s): E11.22 - Type 2 diabetes mellitus with diabetic chronic kidney disease; N18.3 - Chronic kidney disease, stage 3 (moderate); 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 transplanted heart: [place] heart Associated angina: angina presence unspecified Qualified Code(s): I25.10 - Atherosclerotic heart disease of [place] coronary artery without angina pectoris Hospital course: Mr. Guerrero is a 72 year old male patient with a history of hypertension and hyperlipidemia, polymyalgia rheumatica, diabetes who was hospitalized here with chest pain. His troponins were trended and were negative. Underwent stress test which was abnormal. Underwent left heart catheterization and placement of drug eluting stents to mid LAD and mid RCA. On dual antiplatelet therapy. Stable for discharge from a cardiology standpoint. He will follow up with enterprise sales executive after discharge for further management. His blood pressure has been elevated and his metoprolol dosage has been increased. He was also placed on Norvasc but he does not wish to take that at this time until he discusses this further with his PCP. Discharge discussed with: patient, nurse, quality compliance consultant - Time Spent with Patient Total time spent providing and/or coordinating discharge services: Greater than 30 minutes (32 min) - Discharge Medications Prescriptions: amLODIPine [Norvasc] 5 mg PO DAILY #30 tablet Atorvastatin [Lipitor] 40 mg PO HS #30 tablet Clopidogrel [Plavix] 75 mg PO DAILY #30 tablet Metoprolol XL (24 HR) Succ [Toprol Xl] 50 mg PO HS #60 tab.er.24h Home Medications: Omeprazole [PriLOSEC] 40 mg PO DAILY 10/05/16 [History] Ascorbate Calcium [Vitamin C] 500 mg PO DAILY 11/01/17 [History] Cholecalciferol (Vitamin D3) [Vitamin D3] 1,000 unit PO QPM 11/01/17 [History] Dorzolamide/Timolol/Pf [Cosopt Pf Eye Drops] 1 drop OP DAILY 11/01/17 [History] Doxazosin [Cardura] 8 mg PO QAM 11/01/17 [History] Duloxetine HCl [Cymbalta] 60 mg PO QPM 11/01/17 [History] Fenofibrate 200 mg PO QAM 11/01/17 [History] Ferrous Sulfate [Iron] 325 mg PO DAILY 11/01/17 [History] Folic Acid 1 mg PO DAILY 11/01/17 [History] Gabapentin [Neurontin] 200 mg PO TID 11/01/17 [History] Gluc/Dereje-MSM#1/C/Narinder/Eduardo/Bor [Osteo Bi-Flex Caplet] 1 each PO BID 11/01/17 [ History] Insulin LISPRO [HumaLOG] 3 - 16 units SQ TIDWM 11/01/17 [History] Ketotifen Fumarate [Zaditor] 51 drop BOTH EYES BID 11/01/17 [History] Levothyroxine Sodium [Levoxyl] 200 mcg PO QAM 11/01/17 [History] Lidocaine Patch [Lidoderm 5% patch] 1 patch TP DAILY 11/01/17 [History] Loratadine [Allergy Relief] 10 mg PO HS 11/01/17 [History] Losartan [Cozaar] 100 mg PO QAM 11/01/17 [History] Magnesium Oxide 500 mg PO BID 11/01/17 [History] Mirabegron [Myrbetriq] 25 mg PO QAM 11/01/17 [History] Montelukast [Singulair] 10 mg PO DAILY 11/01/17 [History] Niacin (24 HR) [Niaspan] 500 mg PO HS 11/01/17 [History] Finley-3S/Dha/Epa/Fish Oil [Fish Oil Finley-3 Softgel] 1,200 mg PO BID 11/01/17 [ History] Sodium Chloride [Sodium Chloride Tab] 1 gm PO DAILY 11/01/17 [History] Testosterone Cypionate 100 mg IM 2XW 11/01/17 [History] Triamcinolone Acet [place] [Kenalog [place]] 1 spray NS DAILY 11/01/17 [History] Zinc Acetate [Galzin] 25 mg PO QPM 11/01/17 [History] miSOPROStol [Cytotec] 200 mcg PO BID 11/01/17 [History] predniSONE [PredniSONE] 5 mg PO QAM 11/01/17 [History] Atorvastatin [Lipitor] 40 mg PO HS #30 tablet 11/03/17 [Rx] Clopidogrel [Plavix] 75 mg PO DAILY #30 tablet 11/03/17 [Rx] Metoprolol XL (24 HR) Succ [Toprol Xl] 50 mg PO HS #60 tab.er.24h 11/03/17 [Rx] amLODIPine [Norvasc] 5 mg PO DAILY #30 tablet 11/03/17 [Rx] Allergies/Adverse Reactions: 3 Allergy/AdvReac Type Severity Reaction Status Date / Time Penicillins Allergy Hives Verified 11/01/17 16:00 Date of admission: 11/01/17 00:44 Primary care physician: Pankaj Perez MD Consults: 11/02/17 10:41 Consult to Cardiology [CONS] Routine Comment: Consulting Provider: Cardiology Chrissie Reason for Consult: Chest Pain; abnormal stress test Time Notified: 10:41 Call Completed: Yes 11/02/17 19:37 Consult to Cardiac Rehabilitation-Phase1 [CONS] Routine Comment: Reason for Consult: post op PCI Call Completed: Yes Discharging clinician: Angelica Escobar Anticipated date of discharge: 11/03/17 - Constitutional Vitals: Temp Pulse Resp BP Pulse Ox 98.1 F 73 18 140/83 97 11/03/17 11:58 11/03/17 12:10 11/03/17 12:10 11/03/17 12:10 11/03/17 12:10 General appearance: Present: A&O X 3, no acute distress, answers questions appropriately - Neck Neck exam general surgery: Present: supple, trachea midline. Absent: lymphadenopathy - Cardiovascular Cardiovascular exam: Present: RRR, +S1, +S2. Absent: diastolic murmur, gallop, rubs, systolic murmur - GI/Abdominal GI/Abdominal exam: Present: normal bowel sounds, soft, no peritoneal signs. Absent: distended, tenderness - Extremities Exam Extremities exam: Present: warm, radial pulses palpable and symmetrical. Absent : calf tenderness, cyanotic, pedal edema - Patient Status Disposition: Home, Self-Care Condition: Good Functional capacity at discharge: independent ambulation Overall status at discharge: patient is progressing back to baseline - Discharge Instructions Instructions: Chest Pain (DC), Left Heart Catheterization (DC), Right Heart Catheterization (DC), Chronic Hypertension (DC) Follow Up With: Pankaj Perez MD [Primary Care Provider] - (in 1-2 weeks) Ana Marion [Partnered Physician] - (in 1-2 weeks) Additional Instructions: RISK FACTORS: STOP SMOKING: If you smoke, STOP. Smoking or tobacco use significantly increases your risk of heart disease because nicotine causes the arteries to narrow or constrict. It also causes fats to stick to the artery. Your chances of having a heart attack are greatly increased if you continue to smoke. For more information, call the education line for smoking cessation 7-054-JIAUYAA EAT A LOW FAT/CHOLESTEROL/SODIUM DIET: This diet may help reduce your chances of having a heart attack. LIFTING: Avoid lifting anything more than 10 pounds for 5-7 days Prior to straining, laughing, sneezing and/or coughing, apply manual pressure directly over insertion site. ACTIVITY: You may walk or climb stairs as tolerated You can resume sexual activity as tolerated In general, you are encouraged to engage in a minimum of 30 minutes or more of moderate intensity physical activity, such as brisk walking, daily or at least 3 -4 times weekly BATHING Do not submerge the site into water (bath tub, hot tub, swimming pool) for 1 week. This can be a source for infection into the blood stream. You may shower after 24 hours SITE CARE: After 24 hours, you may remove the dressing and leave the site open to air. Keep the site clean and dry. Clean gently and pat dry. You can expect bruising and tenderness that gradually resolve within a week or two. Return to work as instructed per your physician Resume driving as instructed per physician Keep all scheduled follow up appointments Resume medications as instructed IMPORTANT: If prescribed a Platelet Aggregation Inhibitor such as, Plavix, Brilinta or Effient: Duration of therapy is minimum one year These medications are often used in combination with Aspirin in prevention of future heart attacks Never discontinue unless consult with your Laundry Route Driver STROKE (CVA) Risk factors for a stroke are: Age, cigarette smoking, diabetes, excessive alcohol consumption, family history, high blood pressure, overweight, physical inactivity, prior stroke, heart attack, diagnosis of carotid artery stenosis or other artery disease. Warning signs: Sudden numbness or weakness of the face, arm or leg; especially on one side of the body, sudden confusion, trouble speaking or understanding, sudden trouble seeing in one or both eyes, sudden trouble walking, dizziness, loss of balance or coordination, sudden severe headache with no cause. Call 911 or go to the Emergency Room. CONGESTIVE HEART FAILURE: If you have been diagnosed with Congestive Heart Failure (CHF) and your symptoms return, make an appointment with your physician Weigh yourself daily. Notify your physician if you have a weight gain of two or more pounds in one day or five or more pounds in one week. If you experience any difficulty breathing, please call 911 BLEEDING: Although the risk of bleeding is minimal, it can happen. If you have any bleeding from the site, apply firm pressure above the puncture site for 10-15 minutes. If the bleeding does not stop, continue manual pressure and call 911 Contact your physician if: You develop a fever greater than 101 degrees Fahrenheit Your site becomes reddened or has any drainage You have an increase in pain or burning at the site or if a large knot forms at the site. If you experience chest pain, shortness of breath, dizziness, or extreme tiredness, stop the activity and rest. Please notify your physicians office if you experience any of these symptoms and they are not relieved by rest please call 911! - Diet and Activity Activity: as per the cardiac rehab Diet: advance to your usual diet
[2017-11-03 18:11] VITALS: BP 124/80
--- NOTE | 2017-11-04 06:48 | Electrocardiograph Report ---
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
--- NOTE | 2017-11-04 06:56 | Electrocardiograph Report ---
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
== END 2017-11-03 18:20 | disposition home or self-care (01) ==
LOC: 2ANU → SUATTDRO 11-01 00:44 → ICNU 11-02 19:16
PROVIDERS: ADMIT Internal Medicine; ATTEND Internal Medicine

== ENCOUNTER 2018-02-07 04:02 | Observation (INO) ==
--- NOTE | 2018-02-07 07:40 | Internal Med History&Physical ---
Date of Encounter: 02/07/18 Time of Encounter: 07:33 Internal Medicine - H&P: HPI Chief complaint: fall Admitted From: Home Plans for Post Hospital Care: Home History of present illness: Mr. Guerrero is a 72 year old male with history of CAD status post stents in October 2017, hypertension, hyperlipidemia, orthostasis positive, CKD3 and polymyalgia rheumatica presented to the emergency department from [facility] with complaint of a fall. As per patient he woke up in the middle of the night to urinate however could not find his urine also he wet the bed. He called his and helped him stand up so she can change the sheets however he lost balance and fell and hit the back of his head. He denies palpitations, diaphoresis, vision changes, chest pain, shortness of breath or loss of consciousness prior or post episode. He can recall the incident. Denies bowel or bladder incontinence, denies tongue biting. He was taken to the [facility] and was found to have elevated troponin 0.097 so he was transferred to [facility] for further evaluation. while at [facility] imaging of the brain and neck was performed. reports at bedside reviewed. CT of the head was performed impression was no acute abnormalities. CT cervical spine W/O contrast performed at [facility]- impression- no acute abnormalities of the cervical spine. He denies fever, chills, headache, neck pain, nausea, vomiting, chest pain, palpitations, shortness of breath. denies loss of function in extremities, weakness, paresthesia He does report that he has had a recent shingles outbreak in the left flank and does complain of left knee pain however he denies decrease in range of motion, swelling, redness, warmth associated with the knee. Denies trauma to the knee. gary reports that he is compliant with medication but as per pharmacist he has not filled his statins. also he cannot recall if he is taking his ASA 81 mg daily. Past Med Surg Social Fam HX - Past Medical History Medical history: coronary artery disease, diabetes, GERD, hyperlipidemia, hypertension, myocardial infarction, other Psychiatric history: no psych history - Past Surgical History Surgical History: arthroscopy, cataract, knee replacement Additional surgical history: two fused discs - Social History Smoking Status: Never smoker Smokeless Tobacco Status: No Alcohol use: none Drug use: none Internal Medicine - H&P: Meds Ascorbate Calcium [Vitamin C] 500 mg PO DAILY 11/01/17 [History] Cholecalciferol (Vitamin D3) [Vitamin D3] 1,000 unit PO QPM 11/01/17 [History] Doxazosin [Cardura] 8 mg PO QAM 11/01/17 [History] Duloxetine HCl [Cymbalta] 60 mg PO QPM 11/01/17 [History] Fenofibrate 200 mg PO QAM 11/01/17 [History] Ferrous Sulfate [Iron] 325 mg PO Q48H 11/01/17 [History] Folic Acid 1 mg PO DAILY 11/01/17 [History] Gabapentin [Neurontin] 200 mg PO TID 11/01/17 [History] Insulin LISPRO [HumaLOG] 3 - 16 units SQ TIDWM 11/01/17 [History] Levothyroxine Sodium [Levoxyl] 200 mcg PO 0630 11/01/17 [History] Loratadine [Allergy Relief] 10 mg PO HS PRN 11/01/17 [History] Losartan [Cozaar] 100 mg PO QAM 11/01/17 [History] Magnesium Oxide 500 mg PO BID 11/01/17 [History] Montelukast [Singulair] 10 mg PO DAILY 11/01/17 [History] Niacin (24 HR) [Niaspan] 500 mg PO HS 11/01/17 [History] [place]-3S/Dha/Epa/Fish Oil [Fish Oil [place]-3 Softgel] 1,200 mg PO BID 11/01/17 [ History] Sodium Chloride [Sodium Chloride Tab] 1 gm PO DAILY 11/01/17 [History] Testosterone Cypionate 100 mg IM QWEEK 11/01/17 [History] Zinc Acetate [Galzin] 25 mg PO QPM 11/01/17 [History] predniSONE [PredniSONE] 5 mg PO QAM 11/01/17 [History] Clopidogrel [Plavix] 75 mg PO DAILY #30 tablet 11/03/17 [Rx] Metoprolol XL (24 HR) Succ [Toprol Xl] 50 mg PO HS #60 tab.er.24h 11/03/17 [Rx] Metformin HCl [Metformin HCl ER] 500 mg PO DAILY 11/05/17 [History] Misoprostol [Cytotec] 200 mcg PO BID 11/05/17 [History] OxyCODONE Immed Rel [Roxicodone 10 MG] 10 mg PO Q6H PRN 11/05/17 [History] Acyclovir [Zovirax] 800 mg PO 5XD 02/07/18 [History] Lidocaine [Aspercreme] 1 each TP DAILY PRN 02/07/18 [History] Timolol Maleate 0.5% [Timolol Maleate 0.5%] 1 drop OP DAILY 02/07/18 [History] 3 Allergy/AdvReac Type Severity Reaction Status Date / Time Penicillins Allergy Hives Verified 12/17/17 16:22 All Systems PM: review of systems was performed and is negative for pertinent findings except as documented above in the HPI. - Constitutional Vitals: Temp Pulse Resp BP Pulse Ox 98.2 F 81 16 142/73 98 02/07/18 06:11 02/07/18 06:11 02/07/18 06:11 02/07/18 06:11 02/07/18 06:11 Exam: General: Patient is alert, oriented, no acute distress, Head: atraumatic, normocephalic, Eye: normal appearance, PERRL, no scleral icterus, no conjunctival injection ENT: mucous membranes moist, normal external ear exam Neck: normal inspection, trachea midline, full ROM, no carotid bruits Chest: normal inspection, symmetric chest rise Respiratory: Good respiratory effort. Bilateral breath sounds are clear without wheezing, crackles, or rhonchi. Cardiovascular: Regular rate and rhythm. s1 and s2 No clicks, rubs, gallops, or murmors. Abdomen: Bowel sounds present normoactive x-4 quadrants. Abdomen is soft, nondistended. no Epigastric tenderness. No guarding or rebound. No organomegaly noted, obese musculoskeletal: Spontaneously moving all extremities. no edema, no calf tenderness , left knee has range of motion, no warmth or swelling appreciated Skin: warm, dry, intact. Left flank with right blisters in different stages of healing Neuro: Alert and oriented x4. Sensation light touch intact. Cranial nerves 2- 12 is intact. Not aphasic, gait is steady, rapid hand movements intact, finger- to-nose intact, Psych: Patient's affect is normal Internal Med - H&P Results - Labs CBC & Chem 7: 02/07/18 08:22 02/07/18 08:22 - EKG Data -: EKG Interpreted by Myself (NSR, non-specific St-t changes, prolonged QT 491) - Assessment and plan (1) Fall Current Visit: Yes Status: Acute Assessment and plan: Patient was brought in from [facility] status post fall where he hit the back of his head on the ground CT head and neck performed at [facility] did not show any acute abnormalities Does have history of orthostatic hypotension not wearing compression stockings Will get or orthostasis vitals Compression stockings Does have mildly elevated troponin in setting of CKDIII will rule out arrhythmia Telemetry monitoring EKG with prolonged QT- 491-avoid QT prolonging medications will follow serial EKGs along with troponin every 6 hours Cardiology consult Vitamin D level UA TTE 10/2017- Impressions: LVEF 65%. Normal LV chamber size, wall thickness and function. Mild left ventricular diastolic dysfunction. Normal right ventricular structure and function. No evidence of pulmonary hypertension. No significant valvular dysfunction. Qualifiers: Encounter type: initial encounter Qualified Code(s): W19.XXXA - Unspecified fall, initial encounter (2) Orthostatic hypotension Current Visit: No Status: Acute Assessment and plan: Will get orthostatic vitals Compression stockings Continue salt tablets Rest of the management as per above Was counseled on getting up from a laying position slowly (3) CAD (coronary artery disease) Current Visit: No Status: Acute Assessment and plan: Patient with status post SIOBHAN in October 2017 Troponin June was 0.12, troponin was sent at the [facility] 0.09 in setting of CKD Currently chest pain-free, EKG shows nonspecific ST-T changes Will follow serial troponin and EKG every 6 hours unsure if he is compliant to his DAPT ( medication list does not include ASA) Telemetry monitoring Cardiology consult if troponin or ekg changes consider starting him on heparin drip Will continue home medications if not contraindicated ((BB, ARB, DAPT, lipitor) Qualifiers: Coronary Disease-Associated Artery/Lesion type: [place] artery [place] vs. transplanted heart: [place] heart Associated angina: angina presence unspecified Qualified Code(s): I25.10 - Atherosclerotic heart disease of [place] coronary artery without angina pectoris (4) (HFpEF) heart failure with preserved ejection fraction Current Visit: Yes Status: Acute Assessment and plan: CXR stat BNP mildy elevated as [facility] at 14[facility] Currently not an acute distress Will continue home medications if not contraindicated TTE 10/2017- Impressions: LVEF 65%. Normal LV chamber size, wall thickness and function. Mild left ventricular diastolic dysfunction. Normal right ventricular structure and function. No evidence of pulmonary hypertension. No significant valvular dysfunction. (5) Chronic kidney disease, stage 3 Current Visit: No Status: Acute Assessment and plan: History of CKD3 Creatinine ranges from 1.2-1.3 We will follow renal functions closely Avoid nephrotoxic medications (6) Hypothyroidism Current Visit: Yes Status: Acute Assessment and plan: Continue home medications TSH in the morning Qualifiers: Hypothyroidism type: acquired Qualified Code(s): E03.9 - Hypothyroidism, unspecified (7) Diabetes mellitus Current Visit: No Status: Chronic Assessment and plan: Hold all oral hypoglycemic agents We will continue with insulin sliding scale Qualifiers: Diabetes mellitus type: type 2 Diabetes mellitus snf insulin use: with snf use Diabetes mellitus complication status: with kidney complications Diabetes mellitus complication detail: with chronic kidney disease Chronic kidney disease stage: stage 3 (moderate) Qualified Code(s): E11.22 - Type 2 diabetes mellitus with diabetic chronic kidney disease; N18.3 - Chronic kidney disease, stage 3 (moderate); 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
[2018-02-07] MEDS ORDERED: Naloxone 0.4 MG/ML INJ IVP PRN (08:04)
[2018-02-07 08:42] LABS: Basophils % 0.4 %; Eosinophils # 0.1 K/mcL (0.0-0.6); Eosinophils % 0.9 %; Hematocrit 37.7 % (37.5-50.1); Hemoglobin 13.2 g/dL (12.9-16.9); Immature Granulocytes % 0.5 % (0-4); Lymphocytes # 1.1 K/mcL (0.6-4.6); Lymphocytes % 19.6 %; Mean Corpuscular Volume 88.5 fL (83.0-100.0); Mean Platelet Volume 8.5 fL (9.4-12.4); Monocytes # 0.6 K/mcL (0.0-1.3); Neutrophils # 3.8 K/mcL (1.6-8.9); Platelet Count 149 K/mcL (140-400); Red Blood Count 4.26 M/mcL (4.19-5.50); Red Cell Distribution Width 12.9 % (11.5-14.5); Segmented Neutrophils % 67.6 %
[2018-02-07 08:48] LABS: INR 1.1; Prothrombin Time 12.5 Seconds (9.4-12.1)
[2018-02-07 08:51] LABS: Activated Partial Thrombo Time 29.4 Seconds (26.0-36.0)
[2018-02-07 09:02] LABS: Albumin 3.5 g/dL (3.5-5.7); Albumin/Globulin Ratio 1.5 (1.1-2.2); Bilirubin,Total 0.8 mg/dL (0.3-1.0); Calcium 9.1 mg/dL (8.6-10.3); Chol/HDL Ratio 6.4 (0-4.9); Globulin 2.4 g/dL (2.4-3.5); Magnesium 2.1 mg/dL (1.6-2.6); Phosphorous 2.2 mg/dL (2.7-4.5); Potassium 3.3 mEq/L (3.5-5.1); Total Protein 5.9 g/dL (6.4-8.9)
[2018-02-07] MEDS ORDERED: Loratadine 10 MG TABLET PO PRN (09:20)
[2018-02-07] MEDS ORDERED: Trolamine Salicylate/Aloe Vera 35.4 GM TUBE TP PRN (09:20)
[2018-02-07] MEDS ORDERED: *HR* Dextrose 50 % in Water (Syg) 50 ML SYRINGE IVP PRN (09:32)
[2018-02-07] MEDS ORDERED: D5% in Water 1,000 ML IVC PRN (09:32)
[2018-02-07] MEDS ORDERED: Dextrose Gel 15 GM/37.5 ML TUBE PO PRN ×2 (09:32)
[2018-02-07 09:45] LABS: Troponin I 0.1 ng/mL (< 0.04)
[2018-02-07] MEDS ORDERED: Heparin 25,000 UNIT/500 ML D5W 25,000 UNIT/500 ML BAG IVC SCH (10:30)
[2018-02-07] MEDS ORDERED: *HR* Heparin 5,000 UNIT/ML VIAL IVP ONE (10:47)
[2018-02-07] MEDS ORDERED: *HR* Heparin 5,000 UNIT/ML VIAL IVP PRN ×2 (10:47)
--- NOTE | 2018-02-07 11:13 | Cardiology Consult Note ---
<Jayda Zaman - Last Filed: 02/07/18 13:16> Date of Encounter: 02/07/18 Time of Encounter: 11:00 Assessment and Plan (1) Elevated troponin Current Visit: Yes Status: Acute Patient has history of CAD, stent placement in October 2017. Denies chest pain. Unlikely due to ACS. Possibly due to chronic kidney disease. EKG with sinus rhythm, prolonged QT and nonspecific ST changes. Avoid QT prolonging medications. Continue serial troponin and EKGs. Monitor on tele. If no increase in troponin, and patient remains asymptomatic, no evidence of arrhythmias, patient can followup as outpatient for further workup. (2) Fall Current Visit: Yes Status: Acute CT head and neck without acute abnormalities. History of orthostatic hypotension. Orthostatic vitals pending. Continue tele monitoring. Monitor for any bradyarrhythmias. Qualifiers: Encounter type: initial encounter Qualified Code(s): W19.XXXA - Unspecified fall, initial encounter (3) CAD (coronary artery disease) Current Visit: No Status: Acute Double vessel coronary artery disease. PTCA/drug eluting stents in mid LAD and mid RCA, October 2017. TTE 10/2017 with LVEF 65%, mild left ventricular diastolic dysfunction. Follows up with Dr. Ross. Continue aspirin, plavix, BB, ARB. Start Crestor and check LFTs in 2 weeks. Counseled on medication compliance. Qualifiers: Coronary Disease-Associated Artery/Lesion type: [place] artery [place] vs. transplanted heart: [place] heart Associated angina: angina presence unspecified Qualified Code(s): I25.10 - Atherosclerotic heart disease of [place] coronary artery without angina pectoris (4) Orthostatic hypotension Current Visit: No Status: Acute Orthostatic vital signs pending. Compression stockings. (5) Essential hypertension Current Visit: No Status: Chronic Continue home medications and monitor blood pressures. (6) Chronic kidney disease, stage 3 Current Visit: No Status: Acute Management per medicine service. (7) Diabetes mellitus Current Visit: No Status: Chronic Management per medicine service. 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 All questions were answered. Thank you for involving us in the care of your patient. Please call with any questions. History of Present Illness Consult date: 02/07/18 Requesting physician: Dolores Ann Consult reason: elevated troponin, h/o CAD s/p stents in 2018, prolonged QT, ? syncope Chief complaint: fall History of present illness: Mr. Guerrero is a 72 year old male with past medical history including CAD s/p two stent placements in October 2017 on plavix, hypertension, hyperlipidemia, orthoastasis positive, CKD stage 3, polymyalgia rhymatica who presents from [facility] with chief complaint of fall. Patient states he woke up in the middle of the night to use the restroom. His helped assist him out of bed. The patient states he did not have his cane near him. He states he turned, felt sudden back pain, lost his balance, fell backwards and hit his head on the floor. He believes he lost consciousness for about a minute after hitting his head. He denies lightheadedness, chest pain, shortness of breath, nausea, vision changes, weakness, fevers, palpitations. EMS was called and brought him to [facility]. CT of head and neck were negative for acute abnormalities. Troponin was 0.097 and patient was transferred to [place] for further evaluation and management. Troponin at [place] is 0.10. Cardiology consulted for elevated troponin. This morning, patient denies chest pain, diaphoresis, shortness of breath, nausea. Does complain of back pain, which is chronic for him. States he has shingles that was recently diagnosed on his left flank as well. Past Med Surg Social Fam HX - Past Medical History Medical history: coronary artery disease, diabetes, GERD, hyperlipidemia, hypertension, myocardial infarction, other Psychiatric history: no psych history - Past Surgical History Surgical History: arthroscopy, cataract, knee replacement Additional surgical history: two fused discs - Social History Smoking Status: Never smoker Smokeless Tobacco Status: No Alcohol use: none Drug use: none Medications and Allergies Ascorbate Calcium [Vitamin C] 500 mg PO DAILY 11/01/17 [History] Cholecalciferol (Vitamin D3) [Vitamin D3] 1,000 unit PO QPM 11/01/17 [History] Doxazosin [Cardura] 8 mg PO QAM 11/01/17 [History] Duloxetine HCl [Cymbalta] 60 mg PO QPM 11/01/17 [History] Fenofibrate 200 mg PO QAM 11/01/17 [History] Ferrous Sulfate [Iron] 325 mg PO Q48H 11/01/17 [History] Folic Acid 1 mg PO DAILY 11/01/17 [History] Gabapentin [Neurontin] 200 mg PO TID 11/01/17 [History] Insulin LISPRO [HumaLOG] 3 - 16 units SQ TIDWM 11/01/17 [History] Levothyroxine Sodium [Levoxyl] 200 mcg PO 0630 11/01/17 [History] Loratadine [Allergy Relief] 10 mg PO HS PRN 11/01/17 [History] Losartan [Cozaar] 100 mg PO QAM 11/01/17 [History] Magnesium Oxide 500 mg PO BID 11/01/17 [History] Montelukast [Singulair] 10 mg PO DAILY 11/01/17 [History] Niacin (24 HR) [Niaspan] 500 mg PO HS 11/01/17 [History] [place]-3S/Dha/Epa/Fish Oil [Fish Oil [place]-3 Softgel] 1,200 mg PO BID 11/01/17 [ History] Sodium Chloride [Sodium Chloride Tab] 1 gm PO DAILY 11/01/17 [History] Testosterone Cypionate 100 mg IM QWEEK 11/01/17 [History] Zinc Acetate [Galzin] 25 mg PO QPM 11/01/17 [History] predniSONE [PredniSONE] 5 mg PO QAM 11/01/17 [History] Clopidogrel [Plavix] 75 mg PO DAILY #30 tablet 11/03/17 [Rx] Metoprolol XL (24 HR) Succ [Toprol Xl] 50 mg PO HS #60 tab.er.24h 11/03/17 [Rx] Metformin HCl [Metformin HCl ER] 500 mg PO DAILY 11/05/17 [History] Misoprostol [Cytotec] 200 mcg PO BID 11/05/17 [History] OxyCODONE Immed Rel [Roxicodone 10 MG] 10 mg PO Q6H PRN 11/05/17 [History] Acyclovir [Zovirax] 800 mg PO 5XD 02/07/18 [History] Aspirin [[place] Aspirin EC] 81 mg PO QPM 02/07/18 [History] Atorvastatin [Lipitor] 20 mg PO HS 02/07/18 [History] Lidocaine [Aspercreme] 1 each TP DAILY PRN 02/07/18 [History] Nitroglycerin [Nitrostat] 1 tab SL Q5MIN PRN 02/07/18 [History] Timolol Maleate 0.5% [Timolol Maleate 0.5%] 1 drop OP DAILY 02/07/18 [History] 3 Allergy/AdvReac Type Severity Reaction Status Date / Time Penicillins Allergy Hives Verified 12/17/17 16:22 All Systems Review: The remainder of the systems were reviewed and are negative - Constitutional Constitutional: other (fall), no chills, no fever(s), no headache(s), no weakness - EENT Eyes: no blurred vision, no loss of vision Nose, mouth and throat: no dysphagia, no sore throat - Cardiovascular Cardiovascular: no chest pain at rest, no chest pain with exertion, no claudication, no diaphoresis, no dyspnea at rest, no dyspnea on exertion, no irregular heart rhythm, no leg edema, no lightheadedness, no palpitations - Respiratory Respiratory: no cough, no dyspnea - Gastrointestinal Gastrointestinal: no abdominal pain, no constipation, no nausea - Genitourinary Genitourinary: no dysuria - Musculoskeletal Musculoskeletal: back pain, no muscle weakness, no myalgias - Integumentary Integumentary: rash (shingles) - Neurological Neurological: no abnormal speech, no dizziness, no loss of vision, no numbness, no syncope, no tingling Physical Examination General: Conversant, No Apparent Distress HEENT: Atraumatic, Normocephaly Neck: No JVD, Normal carotid pulses Cardiac: Reg Rate and Rhythm, Normal S1 and S2, No Murmur Lungs: Normal Breath Sounds, No Wheeze, Rales, Rhonchi Neuro: Alert and responsive, No focal deficits noted Abdomen: Soft, Non-Tender Skin: Other (No pallor.) Musculoskeletal: No Chest Wall Tenderness Extremities: No Edema, Normal Pulses (radial pulses equal bilaterally.) Results 02/07/18 11:15 10/15/18 08:22 Lab Results 02/07/18 02/07/18 02/07/18 08:22 08:22 08:22 WBC 5.7 Hgb 13.2 Hct 37.7 Plt Count 149 INR 1.1 APTT 29.4 Sodium 131 L Potassium 3.3 L Chloride 100 Carbon Dioxide 23 BUN 23 Creatinine 1.50 H Glucose 123 H Calcium 9.1 Magnesium 2.1 Total Bilirubin 0.8 AST 16 ALT 9 Alkaline Phosphatase 44 Troponin I B-Natriuretic Peptide 02/07/18 02/07/18 08:22 08:22 WBC Hgb Hct Plt Count INR APTT Sodium Potassium Chloride Carbon Dioxide BUN Creatinine Glucose Calcium Magnesium Total Bilirubin AST ALT Alkaline Phosphatase Troponin I 0.10 H* B-Natriuretic Peptide 96 Consult Discharge Plan - Plan Referrals: Pankaj Perez MD [Primary Care Provider] - <TitusGwendolynwarren - Last Filed: 02/07/18 13:47> Date of Encounter: 02/07/18 - Attending Attestation Patient was seen and evaluated independently by me. Findings, assessment and plan were discussed at length with patient, questions answered. Agree with nurse practitioner's documentation. Addition as follows, 72 yoCM ho SIOBHAN to LAD and RCA [id number] for abn stress test, significnant chronic lower back pain, PMR, CKD 3, HTN, HLD. P/w a mechanical fall at the setting of severe back pain and leg weakness when turning. Dined dizziness before fall or LOC w neg CT head. ECG SR, STD inferior (no sig change c/w prior ECGs), trop 0.1 flat. Pt refusing lipitor due to concern for liver function. Back pain on interview, denied any CV symptoms. BP mildly elevated, no JVD, CTA, RRR, NT, no LE edema GFR 46, K 3.3, LFT wnl, TC/T/H/L 192/199/30/122 A: Mildly elevated troponin, type 2 NSTEMI likely 2/2 hypertension due to back pain HTN, severe back pain CAD, s/p SIOBHAN-LAD and RCA, no angina, not taking statin HLD, ho TG>1k, on tricor, niacin, fish oil, refusing lipitor CKD 3 PMR P: trend trop till down trending, d/c heparin c/w DAPT if cp/dypsnea or tele abn, repeat ECG if no event and neg tele ([facility]) overnight, no further cardiac w/u inpatient pt agrees a trial of crestor, switch lipitor to crestor 20 LFT in 4 wks Fanta Qureshi MD, PhD Assessment and Plan Discussion w patient/family: The assessment and plan as outlined above was discussed with the patient and/or family members who expressed understanding and agreement. All questions were answered. Thank you for involving us in the care of your patient. Please call with any questions. History of Present Illness History of present illness: Mr. Guerrero is a 72 year old male All Systems Review: The remainder of the systems were reviewed and are negative Physical Examination Vital Signs, Last 4 Hours Temp Pulse Resp BP Pulse Ox 02/07/18 12:04 98.2 F 80 15 165/74 98 02/07/18 11:58 91 Results 02/07/18 11:15 02/07/18 08:22 Lab Results 02/07/18 02/07/18 02/07/18 08:22 08:22 08:22 WBC 5.7 Hgb 13.2 Hct 37.7 Plt Count 149 INR 1.1 APTT 29.4 Sodium 131 L Potassium 3.3 L Chloride 100 Carbon Dioxide 23 BUN 23 Creatinine 1.50 H Glucose 123 H Calcium 9.1 Magnesium 2.1 Total Bilirubin 0.8 AST 16 ALT 9 Alkaline Phosphatase 44 Troponin I B-Natriuretic Peptide 02/07/18 02/07/18 02/07/18 08:22 08:22 11:15 WBC 5.3 Hgb 13.2 Hct 39.0 Plt Count 154 INR APTT Sodium Potassium Chloride Carbon Dioxide BUN Creatinine Glucose Calcium Magnesium Total Bilirubin AST ALT Alkaline Phosphatase Troponin I 0.10 H* B-Natriuretic Peptide 96 02/07/18 11:15 WBC Hgb Hct Plt Count INR 1.1 APTT Sodium Potassium Chloride Carbon Dioxide BUN Creatinine Glucose Calcium Magnesium Total Bilirubin AST ALT Alkaline Phosphatase Troponin I B-Natriuretic Peptide
[2018-02-07] MEDS: Folic Acid 1 MG TABLET PO SCH (11:25)
[2018-02-07] MEDS: *HR* OxyCODONE Immed Rel 5 MG TABLET PO PRN ×3 (11:25→23:48)
[2018-02-07] MEDS: Fenofibrate 54 MG TABLET PO SCH (11:25)
[2018-02-07] MEDS: Aspirin 81 MG TAB.CHEW PO SCH (11:25)
[2018-02-07] MEDS: Gabapentin 100 MG CAPSULE PO SCH ×3 (11:26→20:37)
[2018-02-07 11:33] LABS: Hemoglobin 13.2 g/dL (12.9-16.9); Mean Corpuscular HGB Conc 33.8 g/dL (31.6-35.5); Mean Corpuscular Hemoglobin 30.7 pg (28.0-33.3); Mean Corpuscular Volume 90.7 fL (83.0-100.0); Mean Platelet Volume 8.5 fL (9.4-12.4); Platelet Count 154 K/mcL (140-400); Red Cell Distribution Width 12.7 % (11.5-14.5)
[2018-02-07] MEDS: predniSONE 5 MG TABLET PO SCH (11:39)
[2018-02-07 12:19] LABS: Heparin anti-factor XA UFH 0.04 IU/mL (0.30-0.70); INR 1.1; Prothrombin Time 12.9 Seconds (9.4-12.1)
[2018-02-07] MEDS ORDERED: *HR* HYDROmorphone (PF) 1 MG/ML SYRINGE IVP ONE (13:14)
[2018-02-07] MEDS ORDERED: *HR* Heparin 5,000 UNIT/ML VIAL SQ SCH (14:00)
[2018-02-07] MEDS: Insulin LISPRO 300 UNITS/3 ML VIAL SQ SCH ×3 (14:55→20:38)
[2018-02-07] MEDS: Cholecalciferol (D-3) 1,000 UNIT TABLET PO SCH (17:32)
[2018-02-07] MEDS: (Zinc Acetate [Galzin] 25 MG) PO SCH (17:32)
[2018-02-07] MEDS: Magnesium Oxide 400 MG TABLET PO SCH (20:37)
[2018-02-07] MEDS: Metoprolol XL (24 HR) Succ 25 MG TAB.ER.24H PO SCH (20:37)
[2018-02-07] MEDS: miSOPROStol 100 MCG TABLET PO SCH (20:38)
[2018-02-07] MEDS: Niacin (24 HR) 500 MG TAB.ER.24H PO SCH (20:38)
[2018-02-08 01:54] LABS: Hemoglobin 12.4 g/dL (12.9-16.9); Mean Corpuscular HGB Conc 34.4 g/dL (31.6-35.5); Mean Corpuscular Hemoglobin 31.2 pg (28.0-33.3); Mean Corpuscular Volume 90.7 fL (83.0-100.0); Mean Platelet Volume 8.7 fL (9.4-12.4); Platelet Count 147 K/mcL (140-400); Red Blood Count 3.97 M/mcL (4.19-5.50); Red Cell Distribution Width 12.9 % (11.5-14.5)
[2018-02-08 02:15] LABS: Calcium 8.6 mg/dL (8.6-10.3); Potassium 3.8 mEq/L (3.5-5.1)
[2018-02-08 02:28] LABS: Thyroid Stimulating Hormone 2.622 mcIU/mL (0.340-5.600)
[2018-02-08 03:46] LABS: Estimated Average Glucose 120 mg/dl; Hemoglobin A1C 5.8 %
[2018-02-08] MEDS: *HR* OxyCODONE Immed Rel 5 MG TABLET PO PRN ×3 (06:06→20:04)
--- NOTE | 2018-02-08 08:03 | Internal Med Progress Note ---
Hospitalist Progress Note - Encounter Date of Encounter: 02/08/18 - Exam Vitals: Temp Pulse Resp BP Pulse Ox 98 F 60 15 122/68 94 02/08/18 04:00 02/08/18 04:00 02/08/18 04:00 02/08/18 04:00 02/08/18 04:00 - Assessment and Plan (1) Diabetes mellitus Current Visit: No Status: Chronic (2) DVT prophylaxis Current Visit: No Status: Acute (3) CAD (coronary artery disease) Current Visit: No Status: Acute (4) Orthostatic hypotension Current Visit: No Status: Acute (5) Chronic kidney disease, stage 3 Current Visit: No Status: Acute (6) Fall Current Visit: Yes Status: Acute (7) (HFpEF) heart failure with preserved ejection fraction Current Visit: Yes Status: Acute (8) Hypothyroidism Current Visit: Yes Status: Acute - Time Spent with Patient Total time spent is greater than 50% in coordination of care (as documented) at patient's floor/unit and/or counseling patient: Internal Medicine: Result - Labs CBC & Chem 7: 02/08/18 01:38 02/08/18 01:38 Labs: Short CBC 02/07/18 02/07/18 02/08/18 Range/Units 08:22 11:15 01:38 WBC 5.7 5.3 5.8 (4.3-11.1) K/mcL Hgb 13.2 13.2 12.4 L (12.9-16.9) g/dL Hct 37.7 39.0 36.0 L (37.5-50.1) % Plt Count 149 154 147 (140-400) K/mcL Neutrophils # 3.8 (1.6-8.9) K/mcL BMP 02/07/18 02/08/18 08:22 01:38 Sodium 131 L 133 L Potassium 3.3 L 3.8 Chloride 100 103 Carbon Dioxide 23 23 BUN 23 26 H Creatinine 1.50 H 1.52 H Glucose 123 H 121 H Calcium 9.1 8.6 Cardiac Enzymes 02/07/18 02/07/18 02/07/18 Range/Units 08:22 14:00 20:03 Troponin I 0.10 H* 0.12 H* 0.10 H* (< 0.04) ng/mL Liver Function 02/07/18 Range/Units 08:22 Total Bilirubin 0.8 (0.3-1.0) mg/dL AST 16 (13-39) Units/L ALT 9 (7-52) Units/L Alkaline Phosphatase 44 (34-104) Units/L Albumin 3.5 (3.5-5.7) g/dL - ABG Interpretation ABG results: PT/INR, D-dimer PT 12.9 Seconds (9.4-12.1) H 02/07/18 11:15 - Impressions Impressions Knee X-Ray 02/07/18 08:08 IMPRESSION: Stable left knee arthroplasty. Stable lucency surrounding the tibial component of the arthroplasty. D/ / 02/07/2018 10:10:51 Eliecer Tyler MD / [email or web address] Interpreting Provider: Eliecer Tyler MD Chest X-Ray 02/07/18 09:31 IMPRESSION: No focal consolidation. Elevation of the right hemidiaphragm. D/ / Chloe Keating MD / Chloe Keating MD Interpreting Provider: Chloe Keating MD Consult Discharge Plan - Plan Referrals: Pankaj Perez MD [Primary Care Provider] - (1) Diabetes mellitus Qualifiers: Diabetes mellitus type: type 2 Diabetes mellitus licensed psychiatric technician insulin use: with care home use Diabetes mellitus complication status: with kidney complications Diabetes mellitus complication detail: with chronic kidney disease Chronic kidney disease stage: stage 3 (moderate) Qualified Code(s): E11.22 - Type 2 diabetes mellitus with diabetic chronic kidney disease; N18.3 - Chronic kidney disease, stage 3 (moderate); 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 transplanted heart: [place] heart Associated angina: angina presence unspecified Qualified Code(s): I25.10 - Atherosclerotic heart disease of [place] coronary artery without angina pectoris (6) Fall Qualifiers: Encounter type: initial encounter Qualified Code(s): W19.XXXA - Unspecified fall, initial encounter (8) Hypothyroidism Qualifiers: Hypothyroidism type: acquired Qualified Code(s): E03.9 - Hypothyroidism, unspecified
[2018-02-08] MEDS: Folic Acid 1 MG TABLET PO SCH (08:12)
[2018-02-08] MEDS: predniSONE 5 MG TABLET PO SCH (08:12)
[2018-02-08] MEDS: Fenofibrate 54 MG TABLET PO SCH (08:12)
[2018-02-08] MEDS: miSOPROStol 100 MCG TABLET PO SCH ×2 (08:13→20:03)
[2018-02-08] MEDS: Magnesium Oxide 400 MG TABLET PO SCH ×2 (08:13→20:03)
[2018-02-08] MEDS: Gabapentin 100 MG CAPSULE PO SCH ×3 (08:13→20:03)
[2018-02-08] MEDS: Aspirin 81 MG TAB.CHEW PO SCH (08:13)
[2018-02-08] MEDS: Ascorbic Acid 500 MG TABLET PO SCH (08:13)
[2018-02-08] MEDS: Insulin LISPRO 300 UNITS/3 ML VIAL SQ SCH ×4 (08:19→21:50)
--- NOTE | 2018-02-08 09:00 | Cardiology Progress Note ---
<Jayda Zaman - Last Filed: 02/08/18 10:36> Date of Encounter: 02/08/18 Time of Encounter: 08:15 Assessment and Plan (1) Elevated troponin Current Visit: Yes Status: Acute Patient has history of CAD, stent placement in October 2017. Troponin peaked at 0.12, now trending down. Asymptomatic, no chest pain. EKG with sinus rhythm, prolonged QT and nonspecific ST changes. Avoid QT prolonging medications. No events on tele overnight. No dysrhythmias or bradyarrhythmias. Elevated troponin possibly due to type 2 NSTEMI likely due to hypertension due to back pain. Plan to discontinue heparin and continue with dual antiplatelet therapy. If chest pain, dyspnea, or abnormal tele, repeat EKG. Follow up with cardiology as outpatient. No further cardiac workup or intervention needed at this time. Will sign off. (2) CAD (coronary artery disease) Current Visit: No Status: Acute Double vessel coronary artery disease. PTCA/drug eluting stents in mid LAD and mid RCA, October 2017. TTE 10/2017 with LVEF 65% with mild left ventricular diastolic dysfunction. Follows up with Dr. Ross as outpatient. Continue with aspirin, plavix, BB, ARB, Crestor. Check LFTs in 4 weeks. Follow up with Cardiology as an outpatient. Qualifiers: Coronary Disease-Associated Artery/Lesion type: [place] artery [place] vs. transplanted heart: [place] heart Associated angina: angina presence unspecified Qualified Code(s): I25.10 - Atherosclerotic heart disease of [place] coronary artery without angina pectoris (3) Fall Current Visit: Yes Status: Acute CT head and neck without acute abnormalities. Patient has back pain and denied CV symptoms. No evidence of bradyarrhythmias on tele overnight. Continue tele monitoring. Qualifiers: Encounter type: initial encounter Qualified Code(s): W19.XXXA - Unspecified fall, initial encounter (4) Orthostatic hypotension Current Visit: No Status: Acute Encouraged compression stockings. (5) Essential hypertension Current Visit: No Status: Chronic Blood pressures better controlled overnight. Continue home medications. (6) Hyperlipidemia Current Visit: Yes Status: Acute Patient was not taking a statin as outpatient due to concern of liver function. Started on Crestor 20mg yesterday. Continue this. Check LFTs in 4 weeks. Continue with niacin, tricor, fish oil. Qualifiers: Hyperlipidemia type: mixed hyperlipidemia Qualified Code(s): E78.2 - Mixed hyperlipidemia (7) Chronic kidney disease, stage 3 Current Visit: No Status: Acute Management per medicine service. (8) Diabetes mellitus Current Visit: No Status: Chronic Management per medicine service. 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 All questions were answered. Thank you for involving us in the care of your patient. Please call with any questions. Subjective Principal diagnosis: elevated troponin, fall Interval history: No events on secured entrance monitor. No evidence of bradyarrhythmias or dysrhythmias. Patient states he is doing well. Only complaint is lower back pain, which is chronic for him. Denies chest pain, shortness of breath, diaphoresis, abdominal pain, nausea, vomiting, lightheadedness, dizziness, lower extremity swelling. Blood pressures better controlled this morning. Objective Vital Signs, Last 4 Hours Temp Pulse Resp BP Pulse Ox 02/08/18 07:57 97.9 F 61 16 124/73 98 General: Conversant, No Apparent Distress HEENT: Atraumatic, Normocephaly Neck: No JVD, Normal carotid pulses Cardiac: Reg Rate and Rhythm, Normal S1 and S2, No Murmur Lungs: Normal Breath Sounds, No Wheeze, Rales, Rhonchi Neuro: Alert and responsive, No focal deficits noted Abdomen: Soft, Non-Tender Musculoskeletal: No Chest Wall Tenderness Extremities: No Edema, Normal Pulses (bilateral radial pulses equal) Results 02/08/18 01:38 02/08/18 01:38 Lab Results 02/07/18 02/07/18 02/07/18 08:22 08:22 08:22 WBC Hgb Hct Plt Count INR 1.1 APTT 29.4 Sodium 131 L Potassium 3.3 L Chloride 100 Carbon Dioxide 23 BUN 23 Creatinine 1.50 H Glucose 123 H Calcium 9.1 Magnesium 2.1 Total Bilirubin 0.8 AST 16 ALT 9 Alkaline Phosphatase 44 Troponin I B-Natriuretic Peptide 96 TSH 02/07/18 02/07/18 02/07/18 08:22 11:15 11:15 WBC 5.3 Hgb 13.2 Hct 39.0 Plt Count 154 INR 1.1 APTT Sodium Potassium Chloride Carbon Dioxide BUN Creatinine Glucose Calcium Magnesium Total Bilirubin AST ALT Alkaline Phosphatase Troponin I 0.10 H* B-Natriuretic Peptide TSH 02/07/18 02/07/18 02/08/18 14:00 20:03 01:38 WBC 5.8 Hgb 12.4 L Hct 36.0 L Plt Count 147 INR APTT Sodium Potassium Chloride Carbon Dioxide BUN Creatinine Glucose Calcium Magnesium Total Bilirubin AST ALT Alkaline Phosphatase Troponin I 0.12 H* 0.10 H* B-Natriuretic Peptide TSH 02/08/18 01:38 WBC Hgb Hct Plt Count INR APTT Sodium 133 L Potassium 3.8 Chloride 103 Carbon Dioxide 23 BUN 26 H Creatinine 1.52 H Glucose 121 H Calcium 8.6 Magnesium Total Bilirubin AST ALT Alkaline Phosphatase Troponin I B-Natriuretic Peptide TSH 2.622 - Imaging and Cardiology Chest Xray: report reviewed Consult Discharge Plan - Plan Referrals: Pankaj Perez MD [Primary Care Provider] - 02/16/18 4:40 pm <Fanta Qureshi - Last Filed: 02/08/18 11:02> Date of Encounter: 02/08/18 Assessment and Plan Discussion w patient/family: The assessment and plan as outlined above was discussed with the patient and/or family members who expressed understanding and agreement. All questions were answered. Thank you for involving us in the care of your patient. Please call with any questions. Objective Vital Signs, Last 4 Hours Temp Pulse Resp BP Pulse Ox 02/08/18 07:57 97.9 F 61 16 124/73 98 Results 02/08/18 01:38 02/08/18 01:38 Lab Results 02/07/18 02/07/18 02/07/18 11:15 11:15 14:00 WBC 5.3 Hgb 13.2 Hct 39.0 Plt Count 154 INR 1.1 Sodium Potassium Chloride Carbon Dioxide BUN Creatinine Glucose Calcium Troponin I 0.12 H* TSH 02/07/18 02/08/18 02/08/18 20:03 01:38 01:38 WBC 5.8 Hgb 12.4 L Hct 36.0 L Plt Count 147 INR Sodium 133 L Potassium 3.8 Chloride 103 Carbon Dioxide 23 BUN 26 H Creatinine 1.52 H Glucose 121 H Calcium 8.6 Troponin I 0.10 H* TSH 2.622 - Attending Attestation Patient was seen and evaluated independently by me. Findings, assessment and plan were discussed at length with patient, questions answered. Agree with resident physician's documentation. Addition as follows, No CV event overnight, c/o back pain. BP better, no AVB/arrthythmia on tele. Trop flat at 0.1. CTA, RRR, NT, no LE edema A: type 2 NSTEMI, minimal trop elevation, HTN due to back pain CAD s/p s/p SIOBHAN-LAD and RCA without angina no arthythmia/AVB P: no cardiac rehab indicated c/w crestor, LFT 4 wks No further workup inpatient Cardiology f/u 1 wk, if chest pain or dyspnea or syncope, come to ED STAT. Fanta Qureshi MD, PhD
--- NOTE | 2018-02-08 10:15 | Discharge Summary ---
- NOTES TO OUTPATIENT PROVIDER Notes to Outpatient Provider: Follow-up BMP in 3 days. Repeat Orthostats if needed. Follow-up with Cardiology as instructed. Orders not resulted at time of discharge: Pending orders 02/07/18 08:04 ECG 12 lead ECG [ECG] Routine 02/07/18 08:14 UA w. reflex culture [Urinalysis Reflex Cult & Micro] [URIN] Stat 02/08/18 01:38 Vitamin D 25 Hydroxy AM 0400 Date of Encounter: 02/08/18 Time of Encounter: 10:06 - Discharge Diagnosis (1) Fall Priority: Primary Status: Acute Qualifiers: Encounter type: initial encounter Qualified Code(s): W19.XXXA - Unspecified fall, initial encounter (2) Elevated troponin Priority: Secondary Status: Acute (3) Diabetes mellitus Priority: Secondary Status: Chronic Qualifiers: Diabetes mellitus type: type 2 Diabetes mellitus supervisor final insulin use: with supervisor final use Diabetes mellitus complication status: with kidney complications Diabetes mellitus complication detail: with chronic kidney disease Chronic kidney disease stage: stage 3 (moderate) Qualified Code(s): E11.22 - Type 2 diabetes mellitus with diabetic chronic kidney disease; N18.3 - Chronic kidney disease, stage 3 (moderate); 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 transplanted heart: [place] heart Associated angina: angina presence unspecified Qualified Code(s): I25.10 - Atherosclerotic heart disease of [place] coronary artery without angina pectoris (6) Orthostatic hypotension Priority: Secondary Status: Acute (7) Chronic kidney disease, stage 3 Priority: Secondary Status: Acute (8) (HFpEF) heart failure with preserved ejection fraction Priority: Secondary Status: Acute (9) Hypothyroidism Priority: Secondary Status: Acute Qualifiers: Hypothyroidism type: acquired Qualified Code(s): E03.9 - Hypothyroidism, unspecified Hospital course: Mr. Guerrero is a 72 year old male with history of CAD status post stents in October 2017, hypertension, hyperlipidemia, orthostasis positive, CKD3 and polymyalgia rheumatica presented to the emergency department from [facility] with complaint of a fall. As per patient he woke up in the middle of the night to urinate however could not find his urine also he wet the bed. He called his and helped him stand up so she can change the sheets however he lost balance and fell and hit the back of his head. He denies palpitations, diaphoresis, vision changes, chest pain, shortness of breath or loss of consciousness prior or post episode. He can recall the incident. Denies bowel or bladder incontinence, denies tongue biting. He was taken to the [facility] and was found to have elevated troponin 0.097 so he was transferred to [facility] for further evaluation. While at [facility] imaging of the brain and neck was performed. reports at bedside reviewed. CT of the head was performed impression was no acute abnormalities. CT cervical spine W/O contrast performed at [facility]- impression- no acute abnormalities of the cervical spine. He does report that he has had a recent shingles outbreak in the left flank and does complain of left knee pain however he denies decrease in range of motion, swelling, redness, warmth associated with the knee. Denies trauma to the knee. He reports that he is compliant with medication but as per pharmacist he has not filled his statins. also he cannot recall if he is taking his ASA 81 mg daily. He was admitted for observation for further workup. Since he recently had stent placed with elevated troponin, Cardiology was consulted. Troponin and EKG were monitored. There were no acute issues. Troponin decreased to 0.12 and 0.10. Cardiology deemed no further workup necessary at this point. He is to follow-up as outpatient. He has known orthostatic hypotension, which is being checked prior to discharge. - Time Spent with Patient Total time spent providing and/or coordinating discharge services: - Discharge Medications Home Medications: Ascorbate Calcium [Vitamin C] 500 mg PO DAILY 11/01/17 [History] Cholecalciferol (Vitamin D3) [Vitamin D3] 1,000 unit PO QPM 11/01/17 [History] Doxazosin [Cardura] 8 mg PO QAM 11/01/17 [History] Duloxetine HCl [Cymbalta] 60 mg PO QPM 11/01/17 [History] Fenofibrate 200 mg PO QAM 11/01/17 [History] Ferrous Sulfate [Iron] 325 mg PO Q48H 11/01/17 [History] Folic Acid 1 mg PO DAILY 11/01/17 [History] Gabapentin [Neurontin] 200 mg PO TID 11/01/17 [History] Insulin LISPRO [HumaLOG] 3 - 16 units SQ TIDWM 11/01/17 [History] Levothyroxine Sodium [Levoxyl] 200 mcg PO 0630 11/01/17 [History] Loratadine [Allergy Relief] 10 mg PO HS PRN 11/01/17 [History] Losartan [Cozaar] 100 mg PO QAM 11/01/17 [History] Magnesium Oxide 500 mg PO BID 11/01/17 [History] Montelukast [Singulair] 10 mg PO DAILY 11/01/17 [History] Niacin (24 HR) [Niaspan] 500 mg PO HS 11/01/17 [History] [place]-3S/Dha/Epa/Fish Oil [Fish Oil [place]-3 Softgel] 1,200 mg PO BID 11/01/17 [ History] Sodium Chloride [Sodium Chloride Tab] 1 gm PO DAILY 11/01/17 [History] Testosterone Cypionate 100 mg IM QWEEK 11/01/17 [History] Zinc Acetate [Galzin] 25 mg PO QPM 11/01/17 [History] predniSONE [PredniSONE] 5 mg PO QAM 11/01/17 [History] Clopidogrel [Plavix] 75 mg PO DAILY #30 tablet 11/03/17 [Rx] Metoprolol XL (24 HR) Succ [Toprol Xl] 50 mg PO HS #60 tab.er.24h 11/03/17 [Rx] Metformin HCl [Metformin HCl ER] 500 mg PO DAILY 11/05/17 [History] Misoprostol [Cytotec] 200 mcg PO BID 11/05/17 [History] OxyCODONE Immed Rel [Roxicodone 10 MG] 10 mg PO Q6H PRN 11/05/17 [History] Acyclovir [Zovirax] 800 mg PO 5XD 02/07/18 [History] Aspirin [[place] Aspirin EC] 81 mg PO QPM 02/07/18 [History] Atorvastatin [Lipitor] 20 mg PO HS 02/07/18 [History] Lidocaine [Aspercreme] 1 each TP DAILY PRN 02/07/18 [History] Nitroglycerin [Nitrostat] 1 tab SL Q5MIN PRN 02/07/18 [History] Timolol Maleate 0.5% 1 drop OP DAILY 02/07/18 [History] Omeprazole [PriLOSEC] 40 mg PO 0730 capsule. 02/08/18 [Rx] Rosuvastatin [Crestor] 20 mg PO HS tablet 02/08/18 [Rx] Allergies/Adverse Reactions: 3 Allergy/AdvReac Type Severity Reaction Status Date / Time Penicillins Allergy Hives Verified 12/17/17 16:22 Date of admission: 02/07/18 06:02 Primary care physician: Pankaj Perez MD Consults: 02/07/18 08:03 Consult to Cardiology [CONS] Routine Comment: Consulting Provider: Cardiology [place] Reason for Consult: elevated troponin history CAD s/p stents in october 2016, EKG with prolonged QT and nonsspecific changes. here s/p fall ? syncope Call Completed: No Discharging clinician: Mariia Baires - Constitutional Vitals: Temp Pulse Resp BP Pulse Ox 97.9 F 61 16 124/73 98 02/08/18 07:57 02/08/18 07:57 02/08/18 07:57 02/08/18 07:57 02/08/18 07:57 Exam: . - Head Head exam: Present: atraumatic, normocephalic - Eye Eye exam: Present: PERRL, conjuntiva pink, sclera anicteric Pupils: Present: PERRL - Neck Neck exam general surgery: Present: supple, trachea midline. Absent: lymphadenopathy - Respiratory Respiratory exam: Present: CTAB. Absent: accessory muscle use, rales, rhonchi, wheezes - Cardiovascular Cardiovascular exam: Present: RRR, +S1, +S2. Absent: diastolic murmur, gallop, rubs, systolic murmur - GI/Abdominal GI/Abdominal exam: Present: normal bowel sounds, soft, no peritoneal signs. Absent: distended, tenderness - Extremities Exam Extremities exam: Present: warm, radial pulses palpable and symmetrical. Absent : calf tenderness, cyanotic, pedal edema - Neurological Exam Neurological exam: Present: CN II-XII intact, oriented X3, no focal deficits. Absent: pronater drift, facial droop, speech deficit - Skin Skin exam: Present: dry, intact - Patient Status Disposition: Home, Self-Care Condition: Good Functional capacity at discharge: uses cane/walker Overall status at discharge: patient is back to baseline - Discharge Instructions Follow Up With: Pankaj Perez MD [Primary Care Provider] - - Diet and Activity Activity: resume usual activities as tolerated Diet: advance to your usual diet
[2018-02-08] MEDS: Cholecalciferol (D-3) 1,000 UNIT TABLET PO SCH (17:28)
[2018-02-08] MEDS: (Zinc Acetate [Galzin] 25 MG) PO SCH (17:30)
[2018-02-08] MEDS: Niacin (24 HR) 500 MG TAB.ER.24H PO SCH (20:03)
[2018-02-08] MEDS: Metoprolol XL (24 HR) Succ 25 MG TAB.ER.24H PO SCH (20:03)
[2018-02-09] MEDS: *HR* OxyCODONE Immed Rel 5 MG TABLET PO PRN ×2 (02:07→08:09)
[2018-02-09] MEDS: Insulin LISPRO 300 UNITS/3 ML VIAL SQ SCH ×2 (08:02→11:25)
[2018-02-09] MEDS: Aspirin 81 MG TAB.CHEW PO SCH (08:10)
[2018-02-09] MEDS: Gabapentin 100 MG CAPSULE PO SCH (08:10)
[2018-02-09] MEDS: predniSONE 5 MG TABLET PO SCH (08:10)
[2018-02-09] MEDS: Fenofibrate 54 MG TABLET PO SCH (08:10)
[2018-02-09] MEDS: Ascorbic Acid 500 MG TABLET PO SCH (08:10)
[2018-02-09] MEDS: Magnesium Oxide 400 MG TABLET PO SCH (08:10)
[2018-02-09] MEDS: Folic Acid 1 MG TABLET PO SCH (08:10)
[2018-02-09] MEDS: miSOPROStol 100 MCG TABLET PO SCH (08:10)
[2018-02-09 10:56] VITALS: BP 121/57
--- NOTE | 2018-02-09 12:40 | Event Note ---
Date of Encounter: 02/09/18 Time of Encounter: 12:38 Patient evaluated this AM. No acute distress, no complaints. VS: reviewed. Physical exam unremarkable. GEN NAD, AAO x3, CVS RRR, lungs: CTAB, ext: no cyanosis, no edema A/P: 1. Fall 2. Elevated Troponin 3. Orthostatic Hypotension - See discharge summary for hospital course. - Okay for discharge home.
== END 2018-02-09 14:32 | disposition home or self-care (01) ==
LOC: 2NENU
PROVIDERS: ADMIT Internal Medicine; ATTEND Internal Medicine